=== PATIENT | female | born 2000 | race Caucasian/White ===

== ENCOUNTER 2021-02-27 22:42 | Inpatient (IN) ==
[2021-02-28] MEDS ORDERED: VANCOMYCIN CONSULT ACTIVE PRN ×2 (00:01→02:38)
[2021-02-28] MEDS ORDERED: LACTATED RINGER'S 1,000 ML IV SCH ×3 (00:15→02:45)
[2021-02-28] MEDS ORDERED: VANCOMYCIN HCL 1,500 MG in SODIUM CHLORIDE 0.9% 500 ML IV SCH (00:15)
--- NOTE | 2021-02-28 00:24 | History & Physical Report ---
Date of Service February 28, 2021 Assessment & Plan (1) Uterine contractions at greater than 20 weeks of gestation: Plan: 89-year-old G1, P0 at 39 weeks of gestation presenting with uterine contractions and cervical change, recently diagnosed with COVID-19 infection, appears to have mild disease, Vital signs stable afebrile, oxygen saturation is perfect in room air, Nonreassuring heart rate with recurrent late decelerations after each contractions with minimal variability, Remote from delivery, Plan to admit, monitor, labs, IV fluids, nasal oxygen and proceed with primary delivery, Patient understand the risks and signed an informed consent. (2) Non-reassuring heart rate with late deceleration: (3) COVID-19 affecting in third trimester: History of Present Illness Primary Care Provider: NO PCP Patient is a 20-year-old G1, P0 at 39 weeks of gestation who presented to labor and delivery with contractions started about 4 hours ago they got closer and more painful, every 5 minutes and pain is 6-7 out of 10. She denies leakage of fluid or vaginal bleeding, she reports good movements. She was diagnosed with COVID-19 on February 22 after having loss of taste and smell for few days. She had mild cough which has recovered and her taste of smell and taste came back. She feels well now and has no complaints other than contractions. She denies fever, chills, chest pain, shortness of breath, dizziness, lightheadedness, headache, nausea or vomiting. Her pulse ox is 100% on room air and her vital signs stable and afebrile. Her has been complicated by, 1) COVID 19 on 02/22 2) GBS, allergic cefalosporins, reaction unknown 3) history of anxiety, was using hydroxyzine as needed She was put on the monitors heart rate baseline was at 150s with minimal variability and recurrent late decelerations. After vaginal exam is capsulation heart rate had small increase about 10 bpm with a minimum moderate variability for only 1 to 2 minutes, IV fluid bolus was started and she was continuously monitored. Later recurrent decelerations persisted after every contraction since then. Decision was made to proceed with imminent delivery via primary due to nonreassuring heart rate and removed from delivery and complicated by recent COVID-19 infection. Patient understand the risks of major surgery as bleeding, infection, injury to surrounding organs like bowels bladder and ureter, more risk of blood clots in lungs and legs. She signed an informed consent. Allergies Allergy/AdvReac Type Severity Reaction Status Date / Time strawberry Allergy Intermediate Hives Verified 02/27/21 23:15 Home Medications Medication Instructions Recorded Confirmed Type prenat.vits,rosa elena,[id number] 1 tab PO DAILY 02/04/21 02/27/21 History Patient History Medical History Anxiety COVID-19 affecting in third trimester Surgical History [place] teeth removed Social History Smoking Status: Never smoker Hx Alcohol Use: No Hx Substance Use: No Preferred Language: Maltese Beliefs That Will Affect Care: None marital status: Current Living Situation: Spouse Feels Safe at Home: Yes Safety Concerns: Feels Safe At This Time [employer] History Denies any history of STDs including chlamydia, gonorrhea, herpes Review of Systems as per Subjective / HPI Physical Exam Constitutional: well developed, well nourished, + acute distress (Mild discomfort with contractions) and + obese Gastrointestinal (Abdomen): normal bowel sounds, soft, nontender, no hepatosplenomegaly (Gravid) Genitourinary: normal external appearance OB Exam Abdomen: + vertex Manual OB Exam: + cervical dilation 3 cm, + cervical effacement 80% and + station -2 (Ballotable with scalp summation) OB Exam Monitor Tracing: + external uterine monitor used, + category II and + late decelerations present (Recurrent late decelerations with every contraction and minimal variability) Results & Data ([facility]) Vital Signs (Past 12 Hours) Vital Signs Temp Pulse Resp Pulse Ox 02/28/21 00:12 74 100 02/28/21 00:07 80 99 02/27/21 23:56 74 100 02/27/21 23:51 75 100 02/27/21 23:46 68 99 02/27/21 23:41 69 99 02/27/21 23:36 70 100 02/27/21 23:31 69 100 02/27/21 23:15 36.7 C 16
[2021-02-28 00:28] LABS: Mean Corpuscular Hgb Conc 32.9 g/dL (32-36)
[2021-02-28 00:36] LABS: Hematocrit (blood only) 37.4 % (37-47); Hemoglobin 12.3 g/dL (12.0-16.0); Mean Corpuscular Hemoglobin 26.6 pg (25-34); Mean Corpuscular Volume 80.8 fL (80-100); RDW Standard Deviation 38.1 fL (36.4-46.3); Red Blood Count 4.63 M/uL (4.2-5.4); White Blood Count 7.13 K/uL (4.8-10.8)
[2021-02-28 00:48] LABS: Basophils # (auto) 0.01 K/uL (0-0.2); Basophils % (auto) 0.1 %; Eosinophils # (auto) 0.06 K/uL (0-0.5); Eosinophils % (auto) 0.8 %; Immature Granulocytes # (auto) 0.02 K/uL (0.00-0.02); Immature Granulocytes % (auto) 0.3 %; Lymphocytes # (auto) 1.31 K/uL (1.2-3.4); Lymphocytes % (auto) 18.4 %; Monocytes # (auto) 0.51 K/uL (0.11-0.59); Monocytes % (auto) 7.2 %; Neutrophils # (auto) 5.22 K/uL (1.4-6.5); Neutrophils % (auto) 73.2 %; Platelet Count 155 K/uL (130-400); Platelet Estimate Normal (Normal)
[2021-02-28] MEDS ORDERED: fentaNYL citrate 100 MCG/2 ML VIAL ONE (00:58)
[2021-02-28] MEDS ORDERED: KETOROLAC 30 MG/ML VIAL ONE (00:58)
[2021-02-28] MEDS ORDERED: OXYTOCIN 10 UNITS/ML VIAL ONE (00:58)
[2021-02-28] MEDS ORDERED: ONDANSETRON INJ 2 MG/ML 2 ML VIAL ONE (00:58)
[2021-02-28] MEDS ORDERED: MoRPHine SULFATE PF 1 MG/ML 10 ML AMP/VIAL ONE (00:58)
[2021-02-28] MEDS ORDERED: PHENYLEPHRINE 100MCG/ML 5ML SYR ONE (00:58)
[2021-02-28] MEDS ORDERED: CITRIC ACID/SODIUM CITRATE 15 ML UDC ONE (01:11)
[2021-02-28] MEDS ORDERED: DIPHTHERIA/TETANUS/PERTUSSIS 0.5 ML SYR/VIAL IM ONE (02:26)
[2021-02-28] MEDS ORDERED: ONDANSETRON INJ 2 MG/ML 2 ML VIAL IV PRN ×2 (02:26→02:56)
[2021-02-28] MEDS ORDERED: KETOROLAC 30 MG/ML VIAL IV PRN ×2 (02:26→02:56)
[2021-02-28] MEDS ORDERED: PROMETHAZINE HCL 25 MG in SODIUM CHLORIDE 0.9% 50 ML IV PRN (02:26)
[2021-02-28] MEDS ORDERED: diphenhydrAMINE Capsule 25 MG CAP PO PRN (02:26)
[2021-02-28] MEDS ORDERED: MEPERIDINE HCL 50 MG/ML CARP IV PRN (02:26)
[2021-02-28] MEDS ORDERED: MAGNESIUM HYDROXIDE SUSP 30 ML UDC PO PRN (02:26)
[2021-02-28] MEDS ORDERED: BENZOCAINE 20% AER SPR 82.5 GM CAN EXT PRN (02:26)
[2021-02-28] MEDS ORDERED: SUPERCREAM 0.870% 15 GM JAR EXT PRN (02:26)
[2021-02-28] MEDS ORDERED: diphenhydrAMINE 50 MG/ML VIAL IV PRN ×2 (02:26→02:56)
[2021-02-28] MEDS ORDERED: HYDROCORTISONE ACETATE 25 MG SUPP PR PRN (02:26)
[2021-02-28] MEDS ORDERED: SENNA 8.6 MG TAB PO PRN (02:26)
[2021-02-28] MEDS ORDERED: MEASLES, MUMPS & RUBELLA VIRUS VIAL SQ ONE (02:26)
--- NOTE | 2021-02-28 02:26 | Post Operative Brief Note ---
Immediate Post Op Note v1 Date of Surgery February 28, 2021 Pre & Post Diagnosis Operation Date: 02/28/21 00:45 <No data on this case meets the specified criteria> I identified the patient and participated in the time-out.: Yes Procedure Operation Date: 02/28/21 00:45 <No data on this case meets the specified criteria> Primary Ceserean Section Surgeon Everett Guevara MD Ammonium Nitrate Crystallizer DRISS Montague Estimated Blood Loss 500 Findings Consistent with Post-Op Diagnosis Drains Johnson Catheter (Johnson catheter inserted prior to coming to OR, draining clear yellow urine, monitored by anesthesia) Anesthesia Type Spinal Complications none Disposition Accompanied Patient To Recovery: Yes
[2021-02-28] MEDS ORDERED: ePHEDrine sulfate 50 MG/ML AMP IV PRN (02:56)
[2021-02-28] MEDS ORDERED: NALOXONE HCL 0.4 MG/1 ML VIAL/CARP IV PRN (02:56)
[2021-02-28] MEDS ORDERED: HYDROmorphone INJ 0.5 MG/0.5 ML SYR IV PRN (02:56)
[2021-02-28] MEDS ORDERED: MoRPHine SULFATE 2 MG/ML CARP IV PRN (02:56)
[2021-02-28] MEDS ORDERED: PROMETHAZINE HCL 6.25 MG in SODIUM CHLORIDE 0.9% 50 ML IV PRN (02:56)
[2021-02-28] MEDS ORDERED: NALBUPHINE HCL INJ 10 MG/ML AMP IV PRN (02:56)
[2021-02-28] MEDS ORDERED: MEPERIDINE HCL 25 MG/ML CARP/VIAL IV PRN (02:56)
[2021-02-28] MEDS ORDERED: NALOXONE HCL 0.08 MG in SYRINGE 1.8 ML IV PRN (02:56)
[2021-02-28] MEDS ORDERED: LACTATED RINGER'S 500 ML IV PRN (02:56)
[2021-02-28] MEDS ORDERED: NALOXONE HCL 1 MG in SODIUM CHLORIDE 0.9% 1000ML 1,000 ML IV PRN (02:56)
[2021-02-28] MEDS ORDERED: MoRPHine SULFATE PF 1 MG/ML 10 ML AMP/VIAL INT SPINAL ONE (02:56)
--- NOTE | 2021-02-28 02:56 | Anesthesiology Consultation ---
Date of Service February 28, 2021 Assessment & Plan (1) Encounter for pre-operative examination: Chart Review Chart Review: Acceptable Risk for Surgery and Patient NOT seen in Pre Admission Testing Consults Requested none ASA [id number] Proposed Anesthesia Anesthesia Type: Spinal (If heart tones recovered in OR, GA if FHT still low.) Risk / Benefits Reviewed With: PT / POA / Parent / Guardian, Accepts Plan and Informed Consent Obtained Additional Notes This preoperative evaluation was performed by myself as patient was being urgently prepped by L&D staff for the OR. The computer documentation was completed after the surgery. History Surgery Operation Date: 02/28/21 00:45 Proposed Procedures p Section in LD - Everett Guevara MD Height/Weight Height: 5 ft 4 in Weight: 94.801 kg Allergies Allergy/AdvReac Type Severity Reaction Status Date / Time strawberry Allergy Intermediate Hives Verified 02/27/21 23:15 Cephalosporins Allergy Rash Verified 02/28/21 00:53 Medications Home Medications Medication Instructions Recorded Confirmed Last Taken prenat.vits,rosa elena,[id number] 1 tab PO DAILY 02/04/21 02/27/21 02/27/21 08:00 Active Medications Generic Name Dose Route Start Last Admin Trade Name Freq PRN Reason Stop Dose Admin Lactated Ringer's 1,000 mls @ 125 mls/hr 02/28/21 01:15 02/28/21 00:35 Lr IV 03/30/21 01:14 125 mls/hr .Q8H GENEVIEVE Administration Past Medical History Medical History Anxiety COVID-19 affecting in third trimester Exercise / Class Metabolic Activity II 4-5 Yardwork/Stairs/Walk up hill Past Surgical History Surgical History [place] teeth removed Past Anesthesia History No Hx of Anesthesia Complications and No Family Hx of Anesthesia Complications History of PONV No Hx of PONV and No Hx of Motion Sickness Social History Smoking Status: Never smoker Hx Alcohol Use: No Hx Substance Use: No Physical Exam Vital Signs Last Vital Signs Temp 36.7 C 02/27/21 23:15 Pulse 74 02/28/21 02:45 Resp 16 02/27/21 23:15 BP 168/70 H 02/28/21 02:43 Pulse Ox 100 02/28/21 02:45 ENMT Mouth: no dentition abnormality Thyromental Distance: > or= 3.5 Finger Breadths Mallampati Class: II Neck normal visual inspection Respiratory normal respiratory effort Auscultation: lungs clear to auscultation bilaterally Cardiovascular Rate/Rhythm: regular rate and regular rhythm Psychiatric Orientation: alert Testing Laboratory Results 02/28/21 00:08 Blood Type A Positive 02/28/21 00:08 Antibody Screen NEGATIVE 02/28/21 00:08
--- NOTE | 2021-02-28 02:57 | Anesthesiology Progress Note ---
Date of Service February 28, 2021 Anesthesia Post Procedure Vital Signs Vital Signs: Temp Pulse Resp BP Pulse Ox 02/28/21 02:55 79 100 02/28/21 02:52 74 90 02/28/21 02:50 77 99 02/28/21 02:45 74 100 02/28/21 02:43 93 H 168/70 H 02/28/21 02:42 75 89 L 02/28/21 02:40 78 98 02/28/21 02:35 84 100 02/28/21 02:33 85 117/57 L 02/28/21 02:30 86 100 02/28/21 01:07 76 100 02/28/21 01:02 76 100 02/28/21 00:57 72 100 02/28/21 00:52 71 100 02/28/21 00:47 80 100 02/28/21 00:42 79 100 02/28/21 00:37 72 100 02/28/21 00:17 100 02/28/21 00:12 74 100 02/28/21 00:07 80 99 02/27/21 23:56 74 100 02/27/21 23:51 75 100 02/27/21 23:46 68 99 02/27/21 23:41 69 99 02/27/21 23:36 70 100 02/27/21 23:31 69 100 02/27/21 23:15 36.7 C 16 Transfer of Care Handoff Completed per policy Notes Mental Status: alert / awake / arousable Nausea / Vomiting: adequately controlled Pain: adequately controlled Airway Patency, RR, SpO2: stable & adequate BP & HR: stable & adequate Hydration State: stable & adequate Neuraxial Anesthesia: was administered and sensory block is resolving Anesthetic Complications: no major complications apparent and Pt Satisfied with anesthetic care
[2021-02-28] MEDS ORDERED: SODIUM CHLORIDE 0.9% 1000ML 1,000 ML IV SCH (03:00)
[2021-02-28] MEDS ORDERED: NO NARCOTICS OR SEDATIVES SCH (03:00)
[2021-02-28] MEDS ORDERED: DC INTRASPINAL MORPHINE SCH (03:00)
[2021-02-28] MEDS: OXYTOCIN 20 UNITS in LACTATED RINGER'S 1,000 ML IV SCH ×2 (04:20→12:26)
--- NOTE | 2021-02-28 04:42 | Operative Report (OR) ---
PREOPERATIVE DIAGNOSES: The patient is a 20-year-old G1, P0, at 39 weeks of gestation, presenting to labor and delivery with contractions, early labor with recurrent late heart rate decelerations, nonreassuring status, remote from delivery and COVID-19 disease. POSTOPERATIVE DIAGNOSES: The patient is a 20-year-old G1, P0, at 39 weeks of gestation, presenting to labor and delivery with contractions,early labor with recurrent late heart rate decelerations, nonreassuring status, remote from delivery and COVID-19 disease. Nuchal cord, meconium-stained amniotic fluid. PROCEDURE: Primary low transverse with Pfannenstiel skin incision. SURGEON: Everett Guevara MD ACTIVITIES COORDINATOR: DRISS Jones ESTIMATED BLOOD LOSS: 500 mL. DRAINS: Johnson catheter drained 675 mL of clear urine. ANESTHESIA: Spinal. ANESTHESIOLOGIST: Dr. Lucia. COMPLICATIONS: None. DESCRIPTION OF FINDINGS: Baby was a viable male infant delivered at 1:35 a.m. in cephalic presentation, Apgars were 8/9, weight is pending. There was a dark meconium-stained amniotic fluid and a nuchal cord around the neck x1. Maternal findings: Normal uterus, fallopian tubes, and ovaries. DESCRIPTION OF PROCEDURE: The patient was taken to the operating room where FHR checked to be in 130's and then spinal anesthesia was given without difficulty. She was placed in dorsal supine position with a leftward tilt. She was prepared and draped in the usual sterile fashion. A Pfannenstiel skin incision was made, carried through to the underlying layer of fascia with the Bovie. Fascia was incised in the midline and incision was extended laterally with the help of Armstrong scissors. Upper aspect of the fascial incision was grasped with 2 Shae clamps, elevated and underlying rectus muscles were dissected off sharply with Armstrong scissors. Lower aspect of the fascial incision was then grasped with 2 Shae clamps, elevated, and underlying rectus muscles were dissected off sharply with Armstrong scissors and bluntly with fingers. Rectus muscles were in the midline. Peritoneum was entered bluntly with fingers. Peritoneal incision was extended superiorly and inferiorly with good visualization of the bladder. Bladder blade was inserted. Vesicouterine peritoneum was identified, grasped with pickups, and entered sharply with Metzenbaum scissors. Bladder flap was created digitally and bladder blade was reinserted. Lower uterine segment was incised in a transverse fashion. Incision was extended laterally with the help of fingers. Membranes were ruptured. Dark meconium fluid stain was obtained and there was a loop of cord at the incision as well as the baby's hand. The baby's hand and the loop of cord were pushed back gently and then head was delivered without difficulty. Shoulders were delivered with minimal traction. Nuchal cord was removed and then the baby's mouth and nose were suctioned. Cord was clamped x2 and cut and baby was handed off to the waiting pediatric team. Cord blood was obtained. Placenta was delivered manually as intact and complete. Uterus was exteriorized and cleared of all clots and debris. Fundus was firm. The uterine incision was repaired with 0 Vicryl in a running locked fashion. Second imbricating layer was placed with the same suture in a running locked fashion. Excellent hemostasis was achieved. Cul-de-sac was irrigated with warm normal saline and suctioned. Normal fallopian tubes, ovaries, cul-de-sac were seen. Uterus was returned to the abdomen. Pelvis was irrigated with warm normal saline and suctioned. Uterine incision was checked to be hemostatic. Parietal peritoneum was approximated with 3-0 Vicryl in a running fashion and it was continued on the muscular layer in a running fashion. Under the fascia, the rectus muscles were hemostatic. Rectus fascia was repaired with 0 Vicryl in a running fashion. Subcuticular fat tissue was brought together with 3-0 Vicryl in a running fashion. The skin was closed with 4-0 Monocryl in a subcuticular fashion. The patient tolerated the procedure well. Sponge, lap, needle count was correct x3. No complications happened. I was present during whole procedure. The patient received vancomycin during surgery. Job ID: [id number] [facility]
[2021-02-28] MEDS ORDERED: CITRIC ACID/SODIUM CITRATE 15 ML UDC PO SCH (06:00)
[2021-02-28] MEDS: FERROUS SULFATE 325 MG TAB PO SCH (08:00)
[2021-02-28] MEDS: SIMETHICONE 80 MG CHEW PO SCH ×4 (08:00→19:55)
[2021-02-28] MEDS: PRENATAL VITAMIN 1 TAB PO SCH (08:00)
[2021-02-28] MEDS: DOCUSATE SODIUM 100 MG CAP PO SCH ×2 (08:00→19:55)
[2021-02-28] MEDS ORDERED: VANCOMYCIN HCL 1,500 MG in SODIUM CHLORIDE 0.9% 500 ML IV ONE (14:00)
[2021-02-28] MEDS: ENOXAPARIN INJ 40 MG/0.4 ML SYR SQ SCH (16:57)
[2021-03-01] MEDS: IBUPROFEN 600 MG TAB PO PRN ×2 (05:15→19:48)
[2021-03-01] MEDS ORDERED: VANCOMYCIN HCL 1,000 MG/270 ML BAG IV SCH (06:00)
[2021-03-01 06:38] LABS: Mean Corpuscular Hgb Conc 31.7 g/dL (32-36)
[2021-03-01 06:57] LABS: Basophils # (auto) 0.01 K/uL (0-0.2); Basophils % (auto) 0.2 %; Eosinophils # (auto) 0.05 K/uL (0-0.5); Giant Platelets 1+; Hematocrit (blood only) 34.4 % (37-47); Hemoglobin 10.9 g/dL (12.0-16.0); Immature Granulocytes # (auto) 0.01 K/uL (0.00-0.02); Immature Granulocytes % (auto) 0.2 %; Lymphocytes # (auto) 0.84 K/uL (1.2-3.4); Lymphocytes % (auto) 16.8 %; Mean Corpuscular Hemoglobin 26.3 pg (25-34); Mean Corpuscular Volume 83.1 fL (80-100); Mean Platelet Volume 13.8 fL (7.4-10.4); Monocytes # (auto) 0.35 K/uL (0.11-0.59); Neutrophils # (auto) 3.73 K/uL (1.4-6.5); Neutrophils % (auto) 74.8 %; Platelet Count 135 K/uL (130-400); Platelet Estimate Decreased (Normal); RDW Coefficient of Variation 13.1 % (11.5-14.5); RDW Standard Deviation 39.6 fL (36.4-46.3); Red Blood Count 4.14 M/uL (4.2-5.4); White Blood Count 4.99 K/uL (4.8-10.8)
[2021-03-01] MEDS: SIMETHICONE 80 MG CHEW PO SCH ×4 (08:05→20:11)
[2021-03-01] MEDS: PRENATAL VITAMIN 1 TAB PO SCH (08:06)
[2021-03-01] MEDS: FERROUS SULFATE 325 MG TAB PO SCH (08:06)
[2021-03-01] MEDS: DOCUSATE SODIUM 100 MG CAP PO SCH ×2 (08:06→19:49)
[2021-03-01 09:18] LABS: INR 0.9 (0.9-1.1); Partial Thromboplastin Ratio 1.1; Partial Thromboplastin Time 29.8 Seconds (21.0-31.0)
[2021-03-01 09:30] LABS: Albumin Level 2.4 gm/dl (3.4-5.0); BUN Creatinine Ratio 8.3 (10-20); Calcium 8.8 mg/dl (8.5-10.1); Creatinine Clr Calc Pharmacy 127.4 ml/min; Est GFR (Non-African American) 108.7 ml/min; Potassium 3.7 mmol/L (3.5-5.1)
[2021-03-01 09:32] LABS: Albumin Globulin Ratio 0.6 (0.9-2); Bilirubin,Total 0.4 mg/dl (0.2-1); Globulin 3.9 gm/dl (2.5-4.0); Total Protein 6.3 gm/dl (6.4-8.2)
[2021-03-01 09:50] LABS: Fibrinogen 553 mg/dl (184-400)
--- NOTE | 2021-03-01 10:21 | Obstetrical Progress Note ---
Date of Service March 01, 2021 Assessment & Plan (1) delivery delivered: c/sec day #1 s/p COVID +ve pt doing well No complaints continue day #1 care Subjective Ambulation: ambulating normally Voiding: no voiding problems Passing Gas:: Yes Diet Tolerance:: clear liquids Lochia:: Small Feeding Type:: breast feeding Review of Systems All systems reviewed & are unremarkable except as noted in HPI & below Physical Exam Constitutional WD/WN, vitals as above well developed and well nourished Eyes PERRL, conjunctivae normal, anicteric sclerae ENMT external ear and nose normal, oropharynx normal Neck trachea midline, no thyromegaly Respiratory normal respiratory effort, lungs clear to auscultation Cardiovascular RRR, no murmur, no edema Chest (Breasts) normal inspection/palpation of breasts Gastrointestinal (Abdomen) normal bowel sounds, soft, nontender, no hepatosplenomegaly Musculoskeletal no cyanosis or clubbing, extremities motor strength 5/5 Skin no rashes, warm and dry + incision (Clean,dry and intact) Neurologic patellar DTR's 2+ bilat, sensation intact Psychiatric A+Ox3, euthymic affect Genitourinary normal external appearance Lymphatic no cervical or axillary lymphadenopathy Results & Data ([facility]) Vital Signs (Past 12 Hours) Vital Signs Temp Pulse Resp BP Pulse Ox 03/01/21 07:55 36.9 C 63 18 124/85 98 03/01/21 03:01 36.9 C 66 16 116/77 96 03/01/21 00:05 36.9 C 65 16 123/73 97
[2021-03-01] MEDS: ENOXAPARIN INJ 40 MG/0.4 ML SYR SQ SCH (15:24)
[2021-03-01] MEDS: oxyCODONE/ACETAMINOPHEN 5mg/325mg TAB PO PRN (19:49)
[2021-03-01] MEDS ORDERED: bisacodyL 5 MG TABEC PO SCH (20:00)
[2021-03-02] MEDS ORDERED: bisacodyL 10 MG SUPP PR PRN (02:27)
[2021-03-02 07:29] LABS: Hematocrit (blood only) 34.5 % (37-47)
[2021-03-02] MEDS: SIMETHICONE 80 MG CHEW PO SCH (07:54)
[2021-03-02] MEDS: IBUPROFEN 600 MG TAB PO PRN (07:54)
[2021-03-02] MEDS: DOCUSATE SODIUM 100 MG CAP PO SCH (07:54)
[2021-03-02] MEDS: FERROUS SULFATE 325 MG TAB PO SCH (07:54)
[2021-03-02] MEDS: oxyCODONE/ACETAMINOPHEN 5mg/325mg TAB PO PRN (07:54)
[2021-03-02] MEDS: PRENATAL VITAMIN 1 TAB PO SCH (09:31)
--- NOTE | 2021-03-02 09:58 | Obstetrical Progress Note ---
Date of Service March 02, 2021 Assessment & Plan (1) delivery delivered: discharge Day #:: 2 Subjective Ambulation: ambulating normally Voiding: no voiding problems Passing Gas:: Yes Diet Tolerance:: regular diet Feeding Type:: bottle feeding Current Pain Level(1-10): 0 doing well plans for d/c today Review of Systems All systems reviewed & are unremarkable except as noted in HPI & below Physical Exam Constitutional WD/WN, vitals as above well developed and comfortable incision c/d/i abdomen is soft fundus firm no edema neg Patrica's Results & Data ([facility]) Vital Signs (Past 12 Hours) Vital Signs Temp Pulse Resp BP Pulse Ox 03/02/21 08:47 36.9 C 74 18 127/83 99 03/02/21 08:15 36.9 C 74 18 127/83 99 03/02/21 03:05 128/82 03/01/21 23:20 36.9 C 68 18 148/85 H 98
--- NOTE | 2021-03-04 05:53 | Discharge Summary (DS) ---
DATE OF ADMISSION: 02/27/2021 DATE OF DISCHARGE: 03/02/2021. DETAILS OF ADMISSION: The patient is a 20-year-old G1, P0 at 39 weeks of gestation, who presented to labor and delivery on 02/27/2021 with uterine contractions and mild COVID disease. She was admitted in isolation room. Her cervix was 3 cm dilated, 80% effaced, and head was at -2 station indicating early labor. heart rate was having late decelerations after each contraction with prolonged decelerations. The patient was started on IV fluids, nasal oxygen and then prepared for emergency . She was taken to the OR on 02/28/2021 and delivered a viable at 01:35 a.m. Her surgery was uncomplicated. See dictated op note for details. On postop period, the patient was doing well, vital signs stable, afebrile. Her COVID symptoms were mild. Her pulse ox was 100% on room air. She was started on Lovenox after 12 hours from her surgery. On postop day #1 she was doing well, VSS Afebrile. Her physical exam was unremarkable. Lungs are clear to auscultation bilaterally. Abdomen was soft, nontender, nondistended. Incision was clean, dry and intact. Her postop H and H was stable at 10/34. On postop day #2, the patient was doing well, vital signs stable, afebrile, ambulating, tolerating regular diet, passing gas and the patient desired to be discharged home on postoperative day #2, 03/02/2021. Discharge instructions were given. Prescriptions were written for pain. She is to be seen in the office in a week. All questions were answered. Job ID: [id number] [facility]
== END 2021-03-02 10:15 | disposition home or self-care (01) | DRG 786 ==
LOC: OPB 22:42 → 4S1 22:45 → 4W 22:49 → 3N 02-28 18:50

== ENCOUNTER 2023-09-26 05:29 | Inpatient (IN) ==
--- NOTE | 2023-09-08 15:36 | Anesthesiology Consultation ---
Date of Service September 08, 2023 Assessment & Plan (1) Encounter for pre-operative examination: Chart Review Chart Review: entry level initiated -Infectious Disease screening: Per PAT nursing assessment on 09/08/23. No known infectious disease contacts in past 10 days or current infectious disease symptoms. No recent travel outside the country. Primary (term distress) 02/28/21= Done under SAB at L3-4 with 1 attempt. Prolonged delivery prior to transport from L&D. History Surgery Operation Date: 09/26/23 07:30 Proposed Procedures p Repeat Section in LD - Marko Watts MD s Bilateral Tubal ligation - Marko Watts MD Height/Weight Height: 5 ft 4 in Weight: 104.326 kg Allergies Allergy/AdvReac Type Severity Reaction Status Date / Time Cephalosporins Allergy Intermediate Rash Verified 09/08/23 14:40 strawberry Allergy Intermediate Hives Verified 09/08/23 14:40 Medications Home Medications Medication Instructions Recorded Confirmed Last Taken prenat.vits,rosa elena,[id number] 1 tab PO DAILY 02/04/21 09/08/23 02/27/21 08:00 ibuprofen 600 mg tablet 600 mg PO Q4H PRN fever or pain 03/02/21 09/08/23 Unknown #30 tabs oxycodone-acetaminophen 5 mg-325 1 - 2 tab PO Q4H PRN pain #14 tabs 03/02/21 09/08/23 Unknown mg tablet (Percocet) sertraline 25 mg tablet (Zoloft) 25 mg PO QAM 09/08/23 09/08/23 Unknown Past Medical History Medical History Anxiety COVID-19 affecting in third trimester 2020 > resolved Past Surgical History Surgical History delivery delivered x1 [place] teeth removed Social History Smoking Status: Never smoker Do You Dip or Chew Tobacco: No Hx Alcohol Use: No Hx Substance Use: No substance use type: does not use Testing Laboratory Results 08/17/23= WBC: 7.30 H/H: 11.5/36.7 PLATELETS: 218 CREATININE: 0.6
[~2023-09-26 05:29] MED LIST: ALLERGY Noted to ORDERED Medication SCH; LACTATED RINGER'S 1,000 ML IV SCH
[2023-09-26] MEDS: LACTATED RINGER'S 1,000 ML IV SCH (06:05)
[2023-09-26] MEDS ORDERED: SODIUM CHLORIDE 0.9% 250 ML IV PRN (06:09)
[2023-09-26 06:12] LABS: Hemoglobin 12.1 g/dl (12.0-16.0); Mean Corpuscular Hemoglobin 25.2 pg (25.0-34.0); Mean Corpuscular Hgb Conc 31.8 g/dL (32.0-36.0); Mean Platelet Volume 13.4 fL (9.4-12.4); Platelet Count 199 K/uL (130-400); RDW Coefficient of Variation 15.9 % (11.5-14.5); RDW Standard Deviation 45.1 fL (36.4-46.3); Red Blood Count 4.81 M/uL (4.20-5.40); White Blood Count 5.81 K/ul (4.8-10.8)
[2023-09-26] MEDS ORDERED: MoRPHine SULFATE PF 1 MG/ML 10 ML AMP/VIAL ONE (07:03)
[2023-09-26] MEDS ORDERED: VANCOMYCIN CONSULT ACTIVE PRN (07:13)
[2023-09-26] MEDS: VANCOMYCIN HCL 1,500 MG in SODIUM CHLORIDE 0.9% 500 ML IV STA (07:25)
[2023-09-26] MEDS ORDERED: LACTATED RINGER'S 500 ML IV PRN (07:47)
[2023-09-26] MEDS ORDERED: MoRPHine SULFATE PF 1 MG/ML 10 ML AMP/VIAL INT SPINAL ONE (07:47)
[2023-09-26] MEDS ORDERED: ePHEDrine sulfate 50 MG/ML AMP IV PRN (07:47)
[2023-09-26] MEDS ORDERED: NALOXONE HCL 0.4 MG/1 ML VIAL/CARP IV PRN (07:47)
[2023-09-26] MEDS ORDERED: diphenhydrAMINE 50 MG/ML VIAL IV PRN (07:47)
[2023-09-26] MEDS ORDERED: NALOXONE HCL 0.08 MG in SYRINGE 1.8 ML IV PRN (07:47)
[2023-09-26] MEDS ORDERED: NALBUPHINE HCL 5 MG in SYRINGE 0 ML IV PRN (07:47)
[2023-09-26] MEDS ORDERED: NALOXONE HCL 1 MG in SODIUM CHLORIDE 0.9% 1,000 ML IV PRN (07:47)
[2023-09-26] MEDS ORDERED: MoRPHine SULFATE 2 MG/ML CARP IV PRN (07:47)
[2023-09-26] MEDS ORDERED: ONDANSETRON INJ 2 MG/ML 2 ML VIAL IV PRN (07:47)
[2023-09-26] MEDS ORDERED: PROMETHAZINE HCL 6.25 MG in SODIUM CHLORIDE 0.9% 50 ML IV PRN (07:47)
[2023-09-26] MEDS: CITRIC ACID/SODIUM CITRATE 15 ML UDC PO SCH (07:55)
--- NOTE | 2023-09-26 07:55 | History & Physical Bridge Note ---
Date of Service September 26, 2023 History & Physical Bridge Note I have examined the patient, reviewed the History & Physical and in the interval since the performance of the History & Physical I have noted the following changes of clinical significance: no changes noted
[2023-09-26] MEDS ORDERED: DC INTRASPINAL MORPHINE SCH (08:00)
[2023-09-26] MEDS ORDERED: SODIUM CHLORIDE 0.9% 1,000 ML IV SCH (08:00)
[2023-09-26] MEDS ORDERED: NO NARCOTICS OR SEDATIVES SCH (08:00)
[2023-09-26] MEDS ORDERED: ONDANSETRON INJ 2 MG/ML 2 ML VIAL ONE (08:24)
[2023-09-26] MEDS ORDERED: ePHEDrine sulfate 50 MG/5 ML SYR ONE (08:24)
[2023-09-26] MEDS ORDERED: OXYTOCIN 10 UNITS/ML VIAL ONE (08:24)
[2023-09-26] MEDS ORDERED: PHENYLEPHRINE 100MCG/ML 10ML SYR IV ONE (08:24)
[2023-09-26] MEDS ORDERED: METOCLOPRAMIDE HCL INJ 5 MG/ML 2 ML VIAL ONE (08:24)
[2023-09-26] MEDS: OXYTOCIN 10 UNITS/ML 10ML VIAL IM ONE (08:33)
[2023-09-26] MEDS: ceFAZolin 2000MG 2,000 MG/15 ML SYR IV SCH (08:57)
[2023-09-26] MEDS ORDERED: ESMOLOL HCL INJ 10 MG/ML 10ML VIAL IV ONE (08:58)
--- OUTSIDE RECORDS SUMMARY | 2023-09-26 08:59 | External Medical Summary | Summary of Care ---
Author Name Unknown Organization [facility] Address [address] [place] [address] Phone [phone] Care Team Providers Care Linen Supply Load Builder Name Role Phone Genaro Long MD Primary Care Provider [phone] Reason for Visit * Reason Onset Date Comments Test Results 08/31/2023 Encounter Details Date Type Department Care Team ([facility] st Contact Info) Description 08/31/2023 Telephone Gynecology/Obstetics [place] [address] [place] [address] Trisha Savage PA-C [address] [place] [address] Test Results Allergies Active Allergy Reactions Criticality Noted Date Comments Cephalosporins 01/24/2001 Food (See Comments) Hives 05/03/2010 documented as of this encounter (statuses as of 08/31/2023) Medications Medication Sig Dispensed Refills Start Date End Date Status Adult Gummy/DHA/FA 0.4-25 MG Oral Tablet Chewable Take by mouth. 0 Active Sertraline HCl 25 MG Oral Tablet (Zoloft)Indications:A nxiety and depression Take 1 Tablet by mouth daily. 90 Tablet 2 04/14/2023 Active Iron-Vitamin C 65-125 MG Oral Tablet (Vitron C) Take 1 Tablet by mouth in the morning. 90 Tablet 3 07/04/2023 Active metroNIDAZOLE 500 MG Oral Tablet (Flagyl) Take 1 Tablet by mouth in the morning and 1 Tablet before bedtime. X 7 days until gone.. 14 Tablet 0 08/31/2023 Active documented as of this encounter (statuses as of 08/31/2023) Active Problems Problem Noted Date Diagnosed Date Antepartum anemia complicating 024 Overview: Did not tolerate oral iron well. Will repeat CBC NEXT appointment to follow up. Anxiety and depression 03/21/2023 Overview: Desires assistance with medication. Prescription given for Zoloft. Declines counseling. Denies suicidal or homicidal thoughts. Patient agrees that she would seek urgent medical attention if she had suicidal or homicidal thoughts. Supervision of normal 02/24/2023 Overview: Estimated Date of Delivery: 09/28/23 Continue vitamin. A positive. Rubella not immune. Varicella immune. Declines genetic testing. S/p anatomy ultrasound - complete and within normal limits. Variable. Passed 1 hour glucose test. CBC shows anemia - on Vitron C. Tdap vaccine completed. GBS culture at 36 weeks. Declines influenza vaccine and declines COVID-19 vaccine. contraception: tubal ligation. Desires to breastfeed. Has a breast pump. History of section complicating pregnan cy 02/21/2023 Overview: History of x 1. Desires repeat and tubal ligation. Rubella non-immune status, antepartum 02/05/2021 Postural orthostatic tachycardia syndrome 2014 Overview: More problematic in summer season, In past sodium chloride has helped prevent the symptoms along with ample fluids. Not using since KOP, Sx's when experienced are flushing/hot flash and dizziness. Syncope episode on rare occasion only. Past neuro work-up with diagnosis age 13. Last seen and released to PCP f/u 2015 Last Assessment & Plan: CONSIDERATIONS: POTS is a form of orthostatic intolerance characterized by an excessive increase in heart rate that occurs on standing without arterial hypotension. Abnormalities in autonomic regulation are felt to be either genetic or acquired. Patients should avoid precipitating factors, and physical activity should be encouraged. POTS can have a variable course in as far as symptoms. ?It is not usually associated with increased maternal or complications RECOMMENDATIONS: Dr. Elroy Pruitt consulted. Referral to neurology for management and care during is recommended. Referral placed and patient made aware. Estimated Date of Delivery Comme nts Yes 09/29/2023 Based on Ultraso und documented as of this encounter (statuses as of 08/31/2023) Resolved Problems Problem Noted Date Diagnosed Date Resolved Date Carrier of group B Streptococcus 02/17/2021 08/19/2023 , normal first 01/12/202107/14 MICHELLE (generalized anxiety disorder) 08/06/2020 08/01/2022 Overview: Hydroxyzine Hcl prn ADVANCE DIRECTIVE INFORMATION 06/02/2005 07/09/2019 Overview: Not applicable (under age of 18) documented as of this encounter (statuses as of 08/31/2023) Immunizations Name Administration Dates Next Due HPV Vaccine, 9-Valent 07/14/2017,03/10/2017,12/11 Meningococcal Conjugate Vacc ine (Menactra/Menveo) 12/25/2015,03/01/2011 PPD 07/15/2020,07/31/2018,11/27/2017 Seasonal Influenza, Split, I IV3, With Preserve, Inj 09/06/2010() TDAP (age 10 and older)(Boostrix) 07/05/2023,07/2020,07/15/2020 TDAP (age 11 and older)(Adacel) 02/09/2010 Varicella Vaccine (Chicken Pox) 02/09/2010 documented as of this encounter Social History Tobacco Use Types Packs/Day Years Used Date Smoking Tobacco: Never Smokeless Tobacco: Never Alcohol Use Standard Drinks/Week Comments Not Currently 0 (1 standard drink = 0.6 oz pur e alcohol) occasional AUDIT-C Answer Date Recorded Frequency of Alcohol Consumption Never 07/14/2020 Average Number of Drinks Not on file 021 Frequency of Binge Drinking Not on file 07/2020 PHQ-2 Answer Date Recorded PHQ Adult Total Score 0 08/17/2023 Hunger Vital Sign Answer Date Recorded Within the past 12 months, y ou worried that your food would run out before you got the money to buy more. Never true 05/02/20 23 Within the past 12 months, t he food you bought just didn't last and you didn't have money to get more. Never true 05/02/2023 [place] Depression Scale Answer Date Recorded [place] Depression Scale Total 7 08/17/2023 The thought of harming myself has occurred to me . Never 08/17/2023 Estimated Date of Delivery Comme nts Yes 09/29/2023 Based on Ultraso und Sex and Gender Information Value Date Recorded Sex Assigned at Female 08/01/2022 2:51 PM EST Gender Identity Female 08/01/2022 2:51 PM EST Sexual Orientation Straight 08/01/2022 2: 51 PM EST Job Start Date Occupation Industry Not on file Not on file Not on file documented as of this encounter Functional Status Functional Status Response Date of Assess ment Are you deaf or do you have serious difficulty h earing? No 08/15/2014 Are you blind or do you have serious difficulty seeing, even when wearing glasses? No 08/15/2014 Do you have serious difficul ty walking or climbing stairs? (5 years old or older) No 08/15/2014 Do you have difficulty dress ing or bathing? (5 years old or older) No 08/15/2014 Cognitive Status Response Date of Assessm ent Because of a physical, menta l, or emotional condition, do you have serious difficulty concentrating, remembering, or making decisions? (5 years old or older) No 08/15/2014 documented as of this encounter Miscellaneous Notes * Telephone Encounter - Trisha Savage PA-C - 08/31/2023 12:36 PM EDT Spoke with patient. Patient notified that her culture is positive for bacterial vaginosis. Suspect this is the reason for the vaginal spotting. A positive blood type. Prescription sent for Metronidazole. Advised no alcohol use in and no alcohol use on Metronidazole. documented in this encounter Plan of Treatment Upcoming Encounters Date Type Department Care Team (Late st Contact Info) Description 09/08/2023 9:00 AM EDT Office Visit Gynecology/Obstetrics [facility] [address] [place] [address] Nina Nino PA-C [address] [place] [address] 09/14/2023 2:15 PM EDT Office Visit Gynecology/Obstetrics [facility] [address] [place] [address] Kasey Styles CRNP [address] [place] [address] 09/20/2023 1:30 PM EDT Office Visit Gynecology/Obstetrics [facility] [address] [place] [address] Marko Watts MD [address] [place] [address] 10/03/2023 1:45 PM EDT Office Visit Gynecology/Obstetrics [facility] [address] [place] [address] Kasey Styles CRNP [address] [place] [address] Health Maintenance Due Date Last Done Comments COVID-19 Vaccine ( season) 2023 Influenza Vaccine (FLU shot) (#1) 2023 Gonorrhea / Chlamydia Screen 02/22/202405/2023, 07/14/2020, 01/08/2018, Additional history exists Pap Smear 04/23/2024 04/23/2021 Depression Screening 08/16/2024 08/17/2023 DTaP,Tdap,and Td Vaccines (10 - Td or Tdap) 07/05/2033 07/05/2023, 12/11/2020, 07/15/2020, Additional history exists Hepatitis B Completed 10/13/2000, 02/11, 01/12/2000 MENINGOCOCCAL (MENACTRA/MENVEO) Completed 12/25/2015, 03/01/2011 GARDASIL-HPV IMMUNIZATION SERIES Completed 07/14/2017, 03/10/2017, 01/06/2017 Pneumococcal Vaccine: Pediatrics (0 to 5 Years) and At-Risk Patients (6 to 64 Years) Aged Out No longer eligible based on patient's age to complete this topic documented as of this encounter Medical Devices Not on filedocumented as of this encounter Care Teams Linen Supply Load Builder Relationship Specialty Start Date End Date Genaro Long MD [address] [place] [id number] PCP - General Family Medicine 08/15/14 documented as of this encounter
--- OUTSIDE RECORDS SUMMARY | 2023-09-26 08:59 | External Medical Summary ---
Author Name Unknown Address Unknown Organization K01:[facility] [place] [address] [facility] [address] Laboratory Report Ordering Provider Test Date Status CURTIS BARNETT 08/30/2023 15:31:24 Final Observation Date Value Abnormality Reference (Units ) Status Streptococcus agalactiae DNA [Presence] in Specimen by DAISY with probe detection 08/30/2023 15:31:24 Positive Abnormal Negative Final Group B Streptococcus detect ed by culture-enhanced PCR (amplified probe).
The collection of vaginal/rectal swab specimen combinations (FDA approved specimen type) is optimal for the detection of Group B Streptococcus. Single source collection (vaginal only or rectal only) or alternate specimen sources may lead to false negative results. Performing Location [facility] [place] [address] [place] [address]
--- OUTSIDE RECORDS SUMMARY | 2023-09-26 08:59 | External Medical Summary | Summary of Care ---
Author Name Unknown Organization [facility] Address [address] [place] [address] Phone [phone] Care Team Providers Care Reproduction Production Manager Name Role Phone Genaro Long MD Primary Care Provider [phone] Reason for Visit * Reason Comments Return Visit Encounter Details Date Type Department Care Team (Late st Contact Info) Description 08/30/2023 3:30 PM EDT Office Visit Gynecology/Obstetics [place] [address] [place] [address] Trisha Savage PA-C [address] [place] [address] Encounter for supervision of other normal in third trimester*; History of section complicating ; Anxiety and depression; Antepartum anemia complicating ; Vaginal spotting Allergies Active Allergy Reactions Criticality Noted Date [...] the morning. 90 Tablet 3 07/04/2023 Active documented as of this encounter (statuses [...] money to get more. Never true 05/02/2023 [place] Depression Scale Answer Date Recorded [place] Depression Scale Total 7 08/17/2023 The thought [...] on file documented as of this encounter Last Filed Vital Signs Vital Sign Reading Time Taken Comments Blood Pressure 130/72 08/30/2023 3:20 PM EDT Pulse - - Temperature - - Respiratory Rate - - Oxygen Saturation - - Inhaled Oxygen Concentration - - Weight 105.6 kg (232 lb 12.8 oz) 08/30/2023 3:20 PM EDT Height - - Body Mass Index 39.96 08/25/2023 2:47 PM EDT documented in this encounter Functional Status Functional Status Response [...] No 08/15/2014 documented as of this encounter Progress Notes * Trisha Savage PA-C - 08/30/2023 3:24 PM EDT Afia Saunders presents for visit at 35w5d. BP 130/72 | Wt 105.6 kg (232 lb 12.8 oz) | LMP 01/09/2023 (Approximate) | BMI 39.96 kg/m | BSA 2.18 m Doing well. Denies vaginal bleeding, leaking of fluid, vaginal pressure, contractions, abdominal pain, or abnormal vaginal discharge. Denies headaches, blurry vision, or right upper quadrant pain. Patient states she feels good movement. Patient reports that mood is stable. Patient reports she had some brownish spotting when wiping after using the restroom yesterday and it was mixed with mucous like discharge. Patient is wondering if she lost her mucous plug. Patient was last sexually active over the weekend. Patient is A positive blood type. Physical Exam General: alert and oriented, no acute distress Pulmonary: normal respiratory effort, no accessory muscle use. Abdomen: gravid, soft, non-tender heart rate: 140's bpm Fundal height: 36 cm Pelvic Exam: external genitalia and vagina anatomy within normal limits, GBS culture obtained today. White vaginal discharge, vaginitis culture obtained today. No blood in the vagina. No pooling in the vagina on valsalva. Cervix visually closed. Pulp Screen Operator Documentation Patient offered construction consultant and declined. [place] Problems (from 02/07/23 to present) Problem Noted Resolved Antepartum anemia complicating 07/19/2023 by Trisha Savage PA-C No Taking oral iron. Anxiety and depression 03/21/2023 by Trisha Savage PA-C No Doing well on Zoloft. Declines counseling. Denies suicidal or homicidal thoughts. Patient agrees that she would seek urgent medical attention if she had suicidal or homicidal thoughts. Supervision of normal 02/24/2023 by Trisha Savage PA-C No Estimated Date of Delivery: 09/28/23 Continue vitamin. A positive. Rubella not immune. Varicella immune. Declines genetic testing. S/p anatomy ultrasound - complete and within normal limits. Variable. Passed 1 hour glucose test. CBC shows anemia - on Vitron C. Tdap vaccine completed. GBS culture at 36 weeks - obtained on 08/30/2023. Declines influenza vaccine and declines COVID-19 vaccine. contraception: tubal ligation. Desires to breastfeed. Has a breast pump. History of section complicating 02/21/2023 by Trisha Savage PA-C No History of x 1. Desires repeat and tubal ligation. Plan: -Advised pelvic rest x 2 weeks (no sexual intercourse). Patient agrees. -Vaginitis culture and urine culture obtained today. -Cephalic. Placenta and RENÉE normal. -Counseled patient on precautions. Patient has carbon plant grinder phone number if needed. -A positive blood type. -GBS culture obtained today. -Patient reports that mental health is stable. -Taking oral iron due to anemia. -Following with Aris Cuauhtemoccarlos Cokers after this due to delivering at [facility]. -Repeat LTCS date is scheduled. Counseled patient to call triage/go to labor and delivery if she has any vaginal bleeding, leaking of fluid, vaginal pressure, 6 or more painful contractions in an hour, abdominal pain, decreased movements, headaches, blurry vision, or right upper quadrant pain. Patient verbalized understanding. RTO in 1 week for return appointment or sooner if any concerns. Trisha Alanis PA-C documented in this encounter Plan of Treatment Upcoming Encounters Date Type Department Care Team (Late st Contact Info) Description 09/08/2023 9:00 AM EDT Office Visit Gynecology/Obstetrics [facility] [address] [place] [address] Nina Nino PA-C [address] [place] [address] 09/14/2023 2:15 PM EDT Office Visit Gynecology/Obstetrics [facility] [address] [place] [address] Kasey Styles CRNP [address] [place] [address] 09/20/2023 1:30 PM EDT Office Visit Gynecology/Obstetrics [facility] [address] [place] [address] Marko Watts MD [address] [place] [address] 10/03/2023 1:45 PM EDT Office Visit Gynecology/Obstetrics [facility] [address] [place] [address] Kasey Styles CRNP [address] [place] [address] Pending Results Name Type Priority Associated Diagnoses Date /Time GROUP B STREP CULTURE/PCR Lab Routine Encounter for supervision of other normal in third trimester 08/30/2023 3:31 PM EDT VAGINOSIS PANEL, PCR Lab Routine Vaginal spotting 08/30/2023 3:39 PM EDT CULTURE, URINE, QUANTITATIVE Lab Routine Vaginal spotting 08/30/2023 3:58 PM EDT Health Maintenance Due Date Last Done Comments [...] Not on filedocumented as of this encounter Visit Diagnoses Diagnosis Encounter for supervision of other normal in third trimester- Primary History of section complicating Previous delivery, unspecified as to episode of care or not applicable Anxiety and depression Dysthymic disorder Antepartum anemia complicating Anemia, antepartum Vaginal spotting Other specified noninflammatory disorder of vagina documented in this encounter Care Teams Reproduction Production Manager Relationship Specialty Start Date End Date Genaro Long MD [address] [place] [address] [phone] PCP - General Family Medicine 08/15/14 documented as of this encounter"
--- OUTSIDE RECORDS SUMMARY | 2023-09-26 08:59 | External Medical Summary | Summary of Care ---
Author Name Unknown Organization [facility] Address [address] [place] [address] Phone [phone] Care Team Providers Care Acoustical Engineer Name Role Phone Genaro Long MD Primary Care Provider [phone] Reason for Visit * Reason Comments Return Visit Encounter Details Date Type Department Care Team (Late st Contact Info) Description 09/14/2023 2:15 PM EDT Office Visit Gynecology/Obstetric s [facility] [address] [place] [address] Kasey Styles CRNP [address] [place] [address] Encounter for supervision of other normal in third trimester*; History of section complicating ; Anxiety and depression; Antepartum anemia complicating Allergies Active Allergy Reactions Criticality Noted Date Comments Cephalosporins 01/24/2001 Food (See Comments) Hives 05/03/2010 documented as of this encounter (statuses as of 09/14/2023) Medications Medication Sig Dispensed Refills Start Date [...] as of this encounter (statuses as of 09/14/2023) Active Problems Problem Noted Date Diagnosed Date [...] as of this encounter (statuses as of 09/14/2023) Resolved Problems Problem Noted Date Diagnosed Date Resolved Date Carrier of group B Streptococcus 02/17/2021 08/19/2023 , normal first 01/12/202107/14 MICHELLE (generalized anxiety disorder) 08/06/2020 08/01/2022 Overview: Hydroxyzine Hcl prn ADVANCE DIRECTIVE INFORMATION 06/02/2005 07/09/2019 Overview: Not applicable (under age of 18) documented as of this encounter (statuses as of 09/14/2023) Immunizations Name Administration Dates Next Due HPV [...] money to get more. Never true 05/02/2023 [place] Depression Scale Answer Date Recorded [place] Depression Scale Total 7 08/17/2023 The thought [...] Sign Reading Time Taken Comments Blood Pressure 132/78 09/14/2023 1:58 PM EDT Pulse - - Temperature - - Respiratory Rate - - Oxygen Saturation - - Inhaled Oxygen Concentration - - Weight 108.4 kg (239 lb) 09/14/2023 1:58 PM EDT Height 162.6 cm (5' 4") 09/14/2023 1:58 PM EDT Body Mass Index 41.02 09/14/2023 1:58 PM EDT documented in this encounter Functional [...] as of this encounter Progress Notes * Kaesy Styles CRNP - 09/14/2023 2:31 PM EDT 37w6d Feeling more pelvic pressure, no contractions. Baby is active. No bleeding or LOF. C/s scheduled with BTL. Die Reamer Documentation Provider requested clerical and office support workers. Name of clerical and office support workers: TUNG Burnette documented in this encounter Nursing Notes * Patricia Boswell LPN - 09/14/2023 2:08 PM EDT 37w6d Would like cervical exam- feeling lots of pelvic pressure. documented in this encounter Plan of Treatment Upcoming Encounters Date Type Department Care Team (Late st Contact Info) Description 09/20/2023 1:30 PM EDT Office Visit Gynecology/Obstetrics [facility] [address] [place] [address] Marko Watts MD [address] [place] [address] 10/03/2023 1:45 PM EDT Office Visit Gynecology/Obstetrics [facility] [address] [place] [address] Kasey Styles CRNP [address] [place] [address] Health Maintenance Due Date Last Done Comments COVID-19 Vaccine ( season) 2023 Influenza Vaccine (FLU shot) (Season Ended) 2024 Gonorrhea / Chlamydia Screen 02/22/202405/2023, 07/14/2020, 01/08/2018, [...] Dysthymic disorder Antepartum anemia complicating Anemia, antepartum documented in this encounter Care Teams Acoustical Engineer Relationship Specialty Start Date End Date Genaro Long MD [address] [place] [id number] PCP - General Family Medicine 08/15/14 documented as of this encounter
--- OUTSIDE RECORDS SUMMARY | 2023-09-26 08:59 | External Medical Summary | Summary of Care ---
Author Name Unknown Organization [facility] Address [address] [facility] [place] [address] Phone [phone] Care Team Providers Care Data Center Architect Name Role Phone Genaro Long MD Primary Care Provider [phone] Reason for Visit * Reason Comments Return Visit Encounter Details Date Type Department Care Team (Late st Contact Info) Description 09/08/2023 9:00 AM EDT Office Visit Gynecology/Obstetric s [facility] [address] [place] [address] Nina Nino PA-C [address] [place] [address] Encounter for supervision of other normal in third trimester*; History of section complicating ; Anxiety and depression; Antepartum anemia complicating Allergies Active Allergy Reactions Criticality Noted Date Comments Cephalosporins 01/24/2001 Food (See Comments) Hives 05/03/2010 documented as of this encounter (statuses as of 09/08/2023) Medications Medication Sig Dispensed Refills Start Date End Date Status Adult Gummy/DHA/FA 0.4-25 MG Oral Tablet Chewable Take by mouth. 0 Activ e Sertraline HCl 25 MG Oral Tablet (Zoloft)Indicatio ns:Anxiety and depression Take 1 Tablet by mouth daily. 90 Tablet 2 04/14/2023 Active Iron-Vitamin C 65-125 MG Oral Tablet (Vitron C) Take 1 Tablet by mouth in the morning. 90 Tablet 3 07/04/2023 Active metroNIDAZOLE 0.75 % Vaginal Gel (Metrogel-Vaginal ) Administer 1 Applicatorful into the vagina every night at bedtime for 5 days. 70 g 0 09/04/2023 09/09/2023 Active documented as of this encounter (statuses as of 09/08/2023) Active Problems Problem Noted Date Diagnosed Date [...] as of this encounter (statuses as of 09/08/2023) Resolved Problems Problem Noted Date Diagnosed Date Resolved Date Carrier of group B Streptococcus 02/17/2021 08/19/2023 , normal first 01/12/202107/14 MICHELLE (generalized anxiety disorder) 08/06/2020 08/01/2022 Overview: Hydroxyzine Hcl prn ADVANCE DIRECTIVE INFORMATION 06/02/2005 07/09/2019 Overview: Not applicable (under age of 18) documented as of this encounter (statuses as of 09/08/2023) Immunizations Name Administration Dates Next Due HPV [...] money to get more. Never true 05/02/2023 [place] Depression Scale Answer Date Recorded [place] Depression Scale Total 7 08/17/2023 The thought [...] Sign Reading Time Taken Comments Blood Pressure 108/70 09/08/2023 8:46 AM EDT Pulse - - Temperature - - Respiratory Rate - - Oxygen Saturation - - Inhaled Oxygen Concentration - - Weight 106.6 kg (235 lb) 09/08/2023 8:46 AM EDT Height 162.6 cm (5' 4") 09/08/2023 8:46 AM EDT Body Mass Index 40.34 09/08/2023 8:46 AM EDT documented in this encounter Functional Status [...] as of this encounter Progress Notes * Nina Nino PA-C - 09/08/2023 9:14 AM EDT 37w0d Transferring from [facility], plans [place] delivery. Without complaints. Denies VB, LOF, contractions. Pos fm. Feels like baby dropped. Has ERCS with BTL scheduled on 09/26/2023. GBS positive. Labor precautions and packet given. RTC in 1 week Nina Nino PA-C documented in this encounter Nursing Notes * Patricia Boswell LPN - 09/08/2023 9:04 AM EDT 37w0d Denies concerns documented in this encounter Plan of Treatment Upcoming Encounters Date Type Department Care Team (Late st Contact Info) Description 09/14/2023 2:15 PM EDT Office Visit Gynecology/Obstetrics [facility] [address] [place] [address] Kasey Styles CRNP [address] [place] [address] 09/20/2023 1:30 PM EDT Office Visit Gynecology/Obstetrics [facility] [address] [place] [address] Marko Watts MD [address] [place] [address] 10/03/2023 1:45 PM EDT Office Visit Gynecology/Obstetrics [facility] [address] [place] [address] Kasey Styles CRNP [address] [place] [address] Health Maintenance Due Date Last Done Comments COVID-19 Vaccine (2022-24 season) 2023 Influenza Vaccine (FLU shot) (#1) [...] antepartum documented in this encounter Care Teams Data Center Architect Relationship Specialty Start Date End Date Genaro Long MD [address] [place] [address] PCP - General Family Medicine 08/15/14 documented as of this encounter
--- OUTSIDE RECORDS SUMMARY | 2023-09-26 08:59 | External Medical Summary ---
Author Name Unknown Address Unknown Organization K01:[facility] [place] - [address] [facility] [place] [place] [address] Laboratory Report Ordering Provider Test Date Status CURTIS BARNETT 08/30/2023 15:58:04 Final Observation Date Value Abnormality Reference (Units) Status Bacteria identified in Specimen by Culture 08/30/2023 15:58:04 No significant growth Final Test: Culture, Urine, Quanti tative
Specimen Source: Urine, Clean Catch
Specimen Type: Urine
Specimen Date: 08/30/2023 3:58 PM
Result Date: 08/31/2023 3:50 PM
Result Status: Final result
Resulting Lab: [facility] [place]
[address]
[facility] [address]

CULTURE

No significant growth

null Performing Location [facility] [place] - [address] [place] [facility] [address]
--- OUTSIDE RECORDS SUMMARY | 2023-09-26 08:59 | External Medical Summary | Summary of Care ---
Author Name Unknown Organization [facility] Address [address] 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 Encounter Details Date Type Department Care Team (Late st Contact Info) Description 09/20/2023 1:30 PM EDT Office Visit Gynecology/Obstetric s [facility]i [facility] [address] [place] [address] Marko Watts MD [address] [place] [address] History of section complicating *; Encounter for supervision of normal first in third trimester; Anxiety and depression; Antepartum anemia complicating ; Preop testing Allergies Active Allergy Reactions Criticality Noted Date Comments Cephalosporins 01/24/2001 Food (See Comments) Hives 05/03/2010 documented as of this encounter (statuses as of 09/20/2023) Medications Medication Sig Dispensed Refills Start Date [...] as of this encounter (statuses as of 09/20/2023) Active Problems Problem Noted Date Diagnosed Date [...] as of this encounter (statuses as of 09/20/2023) Resolved Problems Problem Noted Date Diagnosed Date Resolved Date Carrier of group B Streptococcus 02/17/2021 08/19/2023 , normal first 01/12/202107/14 MICHELLE (generalized anxiety disorder) 08/06/2020 08/01/2022 Overview: Hydroxyzine Hcl prn ADVANCE DIRECTIVE INFORMATION 06/02/2005 07/09/2019 Overview: Not applicable (under age of 18) documented as of this encounter (statuses as of 09/20/2023) Immunizations Name Administration Dates Next Due HPV [...] money to get more. Never true 05/02/2023 [place] Depression Scale Answer Date Recorded [place] Depression Scale Total 7 08/17/2023 The thought [...] Sign Reading Time Taken Comments Blood Pressure 120/72 09/20/2023 1:19 PM EDT Pulse - - Temperature - - Respiratory Rate - - Oxygen Saturation - - Inhaled Oxygen Concentration - - Weight 108 kg (238 lb) 09/20/2023 1:19 PM EDT Height 162.6 cm (5' 4") 09/20/2023 1:19 PM EDT Body Mass Index 40.85 09/20/2023 1:19 PM EDT documented in this encounter Functional [...] as of this encounter Progress Notes * Marko Watts MD - 09/20/2023 1:47 PM EDT Pt doing well No complaints H&P done Consent obtained Pt reports allergy yo cephalosporin- non specific. Was told this by parents A CHILD . DOES NOT THINK THERE WAS ANAPHYLAXIS WILL CHECK RECORDS FOR PREOP ANTIBX GIVEN AT LAST C/SECTION documented in this encounter H&P Notes * Marko Watts MD - 09/20/2023 1:44 PM EDT [address] [address] Appt line [phone] Afia Saunders is a 22 year old year old year old at 38w5d Patient is . 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 Denies h/o STDs and abnormal Paps. Her past medical/surgical histories and current medications are recorded in the electronic record. 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: [employer] Tobacco Use Smoking status: Never Smokeless tobacco: Never Vaping Use Vaping Use: Never used Substance and Sexual Activity Alcohol use: Not Currently Comment: occasional Drug use: No Sexual activity: Yes control/protection: Pill Other Topics Concern Not on file Social History Narrative Not on file Social Determinants of Health Financial Resource Strain: Not on file Food Insecurity: No Food Insecurity (05/02/2023) Hunger Vital Sign Worried About Running Out of Food in the Last Year: Never true Ran Out of Food in the Last Year: Never true Transportation Needs: Not on file Physical Activity: Not on file Stress: Not on file Social Connections: Not on file Intimate Partner Violence: Not on file Housing Stability: Not on file @[employer]@ Physical Exam: BP 120/72 | Ht 1.626 m (5' 4") | Wt 108 kg (238 lb) | LMP 01/09/2023 (Approximate) | BMI 40.85 kg/m | BSA 2.21 m CV: S1, S2. Regular rate and Rhythm Lungs: Clear to auscultation bilaterally. Abdomen: Soft with a gravid uterus and palpable contractions. Fundal Height: 37cms heart rate: 140/min Extremities: Soft non tender calves bilaterally. A/P: 22 year old year old at term Prior section with to have repeat c/sec and bilateral tubal removal We have discussed the risk alternatives and complications of surgery including more surgery to correct complication,risk of anesthesia,infection,damage to internal organs and . We have also discussed the possibility that pt's present situation may not change. Pt is aware and wishes to proceed to surgery. Consent is signed Pt is scheduled for Repeat c/sec and Bilateral tubal removal Marko Watts MD 09/20/2023 1:44 PM documented in this encounter Nursing Notes * Adrianne De Luna LPN - 09/20/2023 1:02 PM EDT 38w5d Pt needs pre-op repeat csection documented in this encounter Plan of Treatment Upcoming Encounters Date Type Department Care Team ([facility] Contact Info) Description 10/03/2023 1:45 PM EDT Office Visit Gynecology/Obstetrics [facility]i [facility] [address] [place] [address] Kasey Styles CRNP [address] [place] [address] Health Maintenance Due Date Last Done Comments COVID-19 Vaccine ( season) 2023 Influenza Vaccine (FLU shot) (Season Ended) 2024 Gonorrhea / Chlamydia Screen 02/22/202405/2023, 07/14/2020, 01/08/2018, Additional history exists Pap Smear 04/23/2024 04/23/2021 DTaP,Tdap,and Td Vaccines (10 - Td or [...] as of this encounter Visit Diagnoses Diagnosis History of section complicating - Primary Previous delivery, unspecified as to episode of care or not applicable Encounter for supervision of normal first in third trimester Supervision of normal first Anxiety and depression Dysthymic disorder Antepartum anemia complicating Anemia, antepartum Preop testing Preoperative examination, unspecified documented in this encounter Care Teams Decker Operator Relationship Specialty Start Date End Date Genaro Long MD [address] [place] [address] [place] [address] PCP - General Family Medicine 08/15/14 documented as of this encounter
--- OUTSIDE RECORDS SUMMARY | 2023-09-26 08:59 | External Medical Summary | Summary of Care ---
Author Name Unknown Organization [facility] Address [address] [facility] [place] [address] Phone [phone] Care Team Providers Care Hydrometer Tester Name Role Phone Genaro Long MD Primary Care Provider [phone] Encounter Details Date Type Department Care Team (Late st Contact Info) Description 08/31/2023 Telephone Gynecology/Obstetrics [facility] [address] [facility] [place] [address] Corine Nunes MD [address] [facility] [place] [address] Allergies Active Allergy Reactions Criticality Noted Date [...] money to get more. Never true 05/02/2023 [place] Depression Scale Answer Date Recorded [place] Depression Scale Total 7 08/17/2023 The thought [...] encounter Miscellaneous Notes * Telephone Encounter - Kirsten House LPN - 08/31/2023 8:52 AM EDT ----- Message from Corine Nunes MD sent at 08/31/2023 6:51 AM EDT ----- Please kindly let patient know I reviewed the ultrasound, baby is head down in fluid is normal Thank you ----- Message ----- From: Alec Escalona In Sent: 08/30/2023 4:43 PM EDT To: Corine Nunes MD documented in this encounter Plan of Treatment Upcoming Encounters Date Type Department Care Team (Late st Contact Info) Description 09/08/2023 9:00 AM EDT Office Visit Gynecology/Obstetrics [address] [place] [address] Nina Nino PA-C [address] [place] [address] 09/14/2023 2:15 PM EDT Office Visit Gynecology/Obstetrics [facility] [address] [place] [address] Kasey Styles CRNP [address] [place] [address] 09/20/2023 1:30 PM EDT Office Visit Gynecology/Obstetrics [facility] [address] [place] [address] Marko Watts MD [address] [place] [address] 10/03/2023 1:45 PM EDT Office Visit Gynecology/Obstetrics [facility] [address] [place] [address] Kasey Styles CRNP [address] [place] [address] Health Maintenance Due Date Last Done Comments [...] filedocumented as of this encounter Care Teams Hydrometer Tester Relationship Specialty Start Date End Date Genaro Long MD [address] [place] [address] PCP - General Family Medicine 08/15/14 documented as of this encounter
--- OUTSIDE RECORDS SUMMARY | 2023-09-26 08:59 | External Medical Summary ---
Author Name Unknown Address Unknown Organization K01:[facility] [place] [address] [facility] [address] [facility] [address] Laboratory Report Ordering Provider Test Date Status CURTIS BARNETT 08/30/2023 15:39:02 Final Observation Date Value Abnormality Reference (Units ) Status Bacterial vaginosis [Interpretation] in Vaginal fluid Qualitative 08/30/2023 15:39:02 Positive Abnormal Negative Final Positive for Bacterial Vagin osis. Correlate results with other clinical findings. Shasta sp DNA [Presence] in Vaginal fluid by Probe 08/30/2023 15:39:02 Negative Negative Final No Shasta species group RNA detected. Correlate results with other clinical findings. Shasta glabrata RNA [Presen ce] in Vaginal fluid by DAISY with probe detection 08/30/2023 15:39:02 Negative Negative Final No Shasta glabrata RNA dete cted. Correlate results with other clinical findings. Trichomonas vaginalis DNA [P resence] in Vaginal fluid by Probe 08/30/2023 15:39:02 Negative Negative Final No Trichomonas vaginalis RNA detected. Performing Location [facility] - [address] [facility] [address] [facility] [address]
--- OUTSIDE RECORDS SUMMARY | 2023-09-26 09:00 | External Medical Summary | Summary of Care ---
Author Name Unknown Organization [facility] Address [address] [place] [address] Phone [phone] Care Team Providers Care Business Proposal Rep Name Role Phone Genaro Long MD Primary Care Provider Reason for Visit * Reason Comments Return Visit Encounter Details Date Type Department Care Team (Late st Contact Info) Description 08/17/2023 3:00 PM EST Office Visit Gynecology/Obstetics [facility] [address] [place] [address] Trisha Savage PA-C [address] [place] [address] Encounter for supervision of other normal in third trimester*; History of section complicating ; Anxiety and depression; Antepartum anemia complicating Allergies Active Allergy Reactions Criticality Noted Date Comments Cephalosporins 01/24/2001 Food (See Comments) Hives 05/03/2010 documented as of this encounter (statuses as of 08/18/2023) Medications Medication Sig Dispensed Refills Start Date End Date Status Adult Gummy/DHA/FA 0.4-25 MG Oral Tablet Chewable Take by mouth. 0 Active Sertraline HCl 25 MG Oral Tablet (Zoloft)Indications :Anxiety and depression Take 1 Tablet by mouth daily. 90 Tablet 2 04/14/2023 Active Iron-Vitamin C 65-125 MG Oral Tablet (Vitron C) Take 1 Tablet by mouth in the morning. 90 Tablet 3 07/04/2023 Active Additional Information Patient not taking.Reported on 07/19/2023 documented as of this encounter (statuses as of 08/18/2023) Active Problems Problem Noted Date Diagnosed Date [...] x 1. Desires repeat and tubal ligation. Carrier of group B Streptococcus 02/17/2021 Rubella non-immune status, antepartum 02/05/2021 Postural orthostatic [...] as of this encounter (statuses as of 08/18/2023) Resolved Problems Problem Noted Date Diagnosed Date Resolved Date , normal first 01/12/202107/14 MICHELLE (generalized anxiety disorder) 08/06/2020 08/01/2022 Overview: Hydroxyzine Hcl prn ADVANCE DIRECTIVE INFORMATION 06/02/2005 07/09/2019 Overview: Not applicable (under age of 18) documented as of this encounter (statuses as of 08/18/2023) Immunizations Name Administration Dates Next Due HPV [...] money to get more. Never true 05/02/2023 [place] Depression Scale Answer Date Recorded [place] Depression Scale Total 7 08/17/2023 The thought [...] Sign Reading Time Taken Comments Blood Pressure 122/70 08/17/2023 2:50 PM EST Pulse - - Temperature - - Respiratory Rate - - Oxygen Saturation - - Inhaled Oxygen Concentration - - Weight 104 kg (229 lb 4.8 oz) 08/17/2023 2:50 PM EST Height - - Body Mass Index 39.36 08/01/2022 2:47 PM EST documented in this encounter Functional Status Functional [...] Progress Notes * Trisha Savage PA-C - 08/17/2023 3:23 PM EST Afia Saunders presents for visit at 33w6d. BP 122/70 | Wt 104 kg (229 lb 4.8 oz) | LMP 01/09/2023 (Approximate) | BMI 39.36 kg/m | BSA 2.17 m Doing well. Denies vaginal bleeding, leaking of fluid, vaginal pressure, contractions, abdominal pain, or abnormal vaginal discharge. Denies blurry vision, or right upper quadrant pain.Patient has infrequent headaches that resolve. Patient states she feels good movement. Patient has some intermittent vaginal pressure when sitting to standing.. Patient has some scar stretching pain. Physical Exam General: alert and oriented, no acute distress Pulmonary: normal respiratory effort, no accessory muscle use. Abdomen: gravid, soft, non-tender heart rate: 130's pbm Fundal height: 33cm [place] Problems (from 02/07/23 to present) Problem Noted Resolved Antepartum anemia complicating 07/19/2023 by Trisha Savage PA-C No Repeat CBC ordered. Anxiety and depression 03/21/2023 by Trisha Savage PA-C No Patient reports that mood is stable. Declines counseling. Denies suicidal or homicidal thoughts. [...] 1. Desires repeat and tubal ligation. Plan: -Message sent about scheduling and tubal ligation now for [address] [facility]. Message sent to [facility]. Medicaid consent signed in case needed. -CBC ordered to follow up on anemia. -GBS culture at 36 weeks. -Suspect stretching at the area of her previous incision. Counseled patient on symptoms to monitor for. -Patient has appointment scheduled with Cathi [facility] to transfer care. Counseled patient to call triage/go to labor and delivery if she has any vaginal bleeding, leaking of fluid, vaginal pressure, 6 or more painful contractions in an hour, abdominal pain, decreased movements, headaches, blurry vision, or right upper quadrant pain. Patient verbalized understanding. RTO in 2 weeks for return appointment or sooner if any concerns. Trisha Alanis PA-C documented in this encounter Nursing Notes * Mary Melgar CCMA - 08/17/2023 2:50 PM EST Pt here for gita visit - reports pain at scar documented in this encounter Plan of Treatment Upcoming Encounters Date Type Department Care Team (Late st Contact Info) Description 08/31/2023 3:15 PM EDT Office Visit Gynecology/Obstetics [facility] [address] [place] [phone] Trisha Savage PA-C [address] [place] [address] 09/08/2023 9:00 AM EDT Office Visit Gynecology/Obstetrics [facility] [address] [place] [address] Nina Nino PA-C [address] [place] [address] Health Maintenance Due Date Last Done Comments [...] antepartum documented in this encounter Care Teams Business Proposal Rep Relationship Specialty Start Date End Date Genaro Long MD [address] [place] [address] PCP - General Family Medicine 08/15/14 documented as of this encounter"
--- OUTSIDE RECORDS SUMMARY | 2023-09-26 09:00 | External Medical Summary | Summary of Care ---
Author Name Unknown Organization [facility] Address [address] [place] [address] Phone [phone] Care Team Providers Care Log Snaker Name Role Phone Genaro Long MD Primary Care Provider [phone] Reason for Visit * Reason Onset Date Comments MyCode Nonconsent - Not interested at this time 08/03/2023 Encounter Details Date Type Department Care Team (Late st Contact Info) Description 08/03/2023 Orders Only Outcomes Research Department [address] [place] [address] Marleny Rothman CHRA MyCode Nonconsent Documentation Allergies Active Allergy Reactions Criticality Noted Date Comments Cephalosporins 01/24/2001 Food (See Comments) Hives 05/03/2010 documented as of this encounter (statuses as of 08/03/2023) Medications Medication Sig Dispensed Refills Start Date [...] as of this encounter (statuses as of 08/03/2023) Active Problems Problem Noted Date Diagnosed Date [...] as of this encounter (statuses as of 08/03/2023) Resolved Problems Problem Noted Date Diagnosed Date Resolved Date , normal first 01/12/202107/14 MICHELLE (generalized anxiety disorder) 08/06/2020 08/01/2022 Overview: Hydroxyzine Hcl prn ADVANCE DIRECTIVE INFORMATION 06/02/2005 07/09/2019 Overview: Not applicable (under age of 18) documented as of this encounter (statuses as of 08/03/2023) Immunizations Name Administration Dates Next Due HPV [...] Date Recorded PHQ Adult Total Score 0 08/01/2022 Hunger Vital Sign Answer Date Recorded Within the past 12 months, y ou worried that your food would run out before you got the money to buy more. Never true 05/02/20 23 Within the past 12 months, t he food you bought just didn't last and you didn't have money to get more. Never true 05/02/2023 [place] Depression Scale Answer Date Recorded [place] Depression Scale Total 7 07/05/2023 The thought of harming myself has occurred to me . Never 07/05/2023 Estimated Date of Delivery Comme nts Yes [...] as of this encounter Progress Notes * Marleny Rothman CHRA - 08/03/2023 3:12 PM EST MyCode Nonconsent Documentation Afia Saunders was approached in the clinic regarding participation in the MyCode Project and did notconsent. documented in this encounter Plan of Treatment Upcoming Encounters Date Type Department Care Team (Late st Contact Info) Description 08/17/2023 3:00 PM EST Office Visit [facility]necology[facility]stetics [place] [facility] [phone] Trisha Savage PA-C 68 [facility] [place] [address] 08/31/2023 3:15 PM EDT Office Visit Gynecology/Obstetics [place] 68 [facility] [place] [phone] Trisha Savage PA-C [address] [place] [address] 09/08/2023 9:00 AM EDT [facility] [address] [place] [address] Nina Nino PA-C [address] [place] [address] Health Maintenance Due Date Last Done Comments COVID-19 Vaccine (2022- season) 2023 Influenza Vaccine (FLU shot) (#1) 2023 Depression Screening 08/01/2023 08/01/2022 Gonorrhea / Chlamydia Screen 02/22/202405/2023, 07/14/2020, 01/08/2018, [...] filedocumented as of this encounter Care Teams Log Snaker Relationship Specialty Start Date End Date Genaro Long MD [address] [place] [address] PCP - General Family Medicine 08/15/14 documented as of this encounter
--- OUTSIDE RECORDS SUMMARY | 2023-09-26 09:00 | External Medical Summary ---
Author Name Unknown Address Unknown Organization [id number]:[facility] [address] [place] [address] Laboratory Report Ordering Provider Test Date Status CURTIS BARNETT 08/17/2023 15:36:43 Final Observation Date Value Abnormality Reference (Units ) Status Ferritin 08/17/2023 15:36:43 8 Below low normal 13- 150 (ng/mL) Final Performing Location [facility] - [address] [place] [address]
--- OUTSIDE RECORDS SUMMARY | 2023-09-26 09:00 | External Medical Summary | Summary of Care ---
Author Name Unknown Organization [facility] Address [address] [place] [address] Phone [phone] Care Team Providers Care Paper Reel Operator Name Role Phone Genaro Long MD Primary Care Provider [phone] Reason for Visit * Reason Onset Date Comments Appointment 08/18/2023 Encounter Details Date Type Department Care Team ([facility] st Contact Info) Description 08/18/2023 Telephone Gynecology/Obstetics [place] [address] [place] [address] Trisha Savage PA-C [address] [place] [address] Appointment Allergies Active Allergy Reactions Criticality Noted Date [...] money to get more. Never true 05/02/2023 [place] Depression Scale Answer Date Recorded [place] Depression Scale Total 7 08/17/2023 The thought [...] encounter Miscellaneous Notes * Telephone Encounter - Adrianne De Luna LPN - 08/18/2023 12:35 PM EST Please get pt schedule with a physician before her scheduled appt with nina pt is transferring from and needs to discuss csection and tubal * Telephone Encounter - Adrianne De Luna LPN - 08/18/2023 12:32 PM EST EVERT Mak pt is transferring form to [facility] to deliver at [facility] needs repeat csection along with wantinga tubal needs scheduled in 39 weeks pts BRIGHT is 09/29/23 * Telephone Encounter - Nina Nino PA-C - 08/18/2023 12:23 PM EST Probably would be best to have her seen prior to 37 weeks for transfer of care given C/S and tubal and try to coordinate with physician so counseling and consents can be completed. Can you route this to Aubree so she is at least aware of this patient in regards to scheduling. Looks like would be 09/21-09/27 if 39 wks. Please help to reschedule. Thank you! Nina Nino PA-C * Telephone Encounter - Adrianne De Luna LPN - 08/18/2023 12:09 PM EST Would you want pt to be seen sooner then 37 weeks? pt needs repeat csection with tubal and is scheduled with you for her first visit would you like her to see a doc? * Telephone Encounter - Trisha Savage PA-C - 08/18/2023 11:23 AM EST Patient is asking if and tubal ligation can be scheduled now for 39 weeks at [facility]. Patient has appointment scheduled with Nina Nino PA-C to establish care. Thank you. documented in this encounter Plan of Treatment Upcoming Encounters Date Type Department Care Team (Late st Contact Info) Description 08/31/2023 3:15 PM EDT Office Visit Gynecology/Obstetics [place] [address] [place] [phone] Trisha Savage PA-C [facility] [place] [address] 09/08/2023 9:00 AM EDT Office Visit Gynecology/Obstetrics [facility] [address] [place] [address] Nina Nino PA-C [address] [place] [address] Health Maintenance Due Date Last Done Comments [...] filedocumented as of this encounter Care Teams Paper Reel Operator Relationship Specialty Start Date End Date Genaro Long MD [address] [place], [place] [address] [address] PCP - General Family Medicine 08/15/14 documented as of this encounter
--- OUTSIDE RECORDS SUMMARY | 2023-09-26 09:00 | External Medical Summary ---
Author Name Unknown Address Unknown Organization K01:[facility] [place] [facility] [address] [place] [address] Laboratory Report Ordering Provider Test Date Status CURTIS BARNETT 08/17/2023 15:36:43 Final Observation Date Value Abnormality Reference (Units ) Status Creatinine 08/17/2023 15:36:43 0.6 0.5-1.0 (mg/dL) Final Glomerular filtration rate/1.73 sq M.predicted [Volume Rate/Area] in Serum, Plasma or Blood by Creatinine-based formula (CKD-EPI) 08/17/2023 15:36:43 >90 >=60 (mL/min) Final eGFR is calculated based on the CKD-EPI 2020 equation Performing Location [facility] [place] [facility] [address] [place] [address]
--- OUTSIDE RECORDS SUMMARY | 2023-09-26 09:00 | External Medical Summary ---
Author Name Unknown Address Unknown Organization K01:[facility] - [address] [place] [address] Laboratory Report Ordering Provider Test Date Status CURTIS BARNETT 08/17/2023 15:36:43 Final Observation Date Value Abnormality Reference (Units ) Status SYNC LEUKOCYTES IN BLOOD BY AUTOMATED COUNT 08/17/2023 15:36:43 7.30 4.00-10.80 (K/uL) Final Segs 08/17/2023 15:36:43 74.3 40.0-75.0 (%) Final Lymphs % 08/17/2023 15:36:43 13.4 Below low normal 18.0-42.0 (%) Final Monos 08/17/2023 15:36:43 10.1 1.0-11.0 (%) Final Eosinophils 08/17/2023 15:36:43 1.5 0.0-6.0 (%) Final Basos 08/17/2023 15:36:43 0.4 0.0-2.0 (%) Final Immature Granulocyte, Percent 08/17/2023 15:36:43 0.3 0.0-2.0 (%) Final Absolute Segs 08/17/2023 15:36:43 5.42 1.80-7.70 (K/uL) Final Lymphs, absolute 08/17/2023 15:36:43 0.98 Below low normal 1.00-4.80 (K/ul) Final Monos, Abs 08/17/2023 15:36:43 0.74 0.00-1.10 (K/uL) Final Eos, Abs 08/17/2023 15:36:43 0.11 0.00-0.70 (K/uL) Final Basos, Abs 08/17/2023 15:36:43 0.03 0.00-0.20 (K/uL) Final Immature Granulocytes, Number 08/17/2023 15:36:43 0.02 0.00-0.20 (K/uL) Final Performing Location [facility] [place] - [address] [facility] [address]
--- OUTSIDE RECORDS SUMMARY | 2023-09-26 09:00 | External Medical Summary | Summary of Care ---
Author Name Unknown Organization [facility] Address [address] [facility] [place] [address] Phone [phone] Care Team Providers Care Book Agent Name Role Phone Gnearo Long MD Primary Care Provider [phone] Encounter Details Date Type Department Care Team (Late st Contact Info) Description 08/07/2023 Orders Only PATIENT PORTAL DO NOT DELETE THIS DEPT USED BY [place] [address] Allergies Active Allergy Reactions Criticality Noted Date Comments Cephalosporins 01/24/2001 Food (See Comments) Hives 05/03/2010 documented as of this encounter (statuses as of 08/07/2023) Medications Medication Sig Dispensed Refills Start Date [...] as of this encounter (statuses as of 08/07/2023) Active Problems Problem Noted Date Diagnosed Date [...] as of this encounter (statuses as of 08/07/2023) Resolved Problems Problem Noted Date Diagnosed Date Resolved Date , normal first 01/12/202107/14 MICHELLE (generalized anxiety disorder) 08/06/2020 08/01/2022 Overview: Hydroxyzine Hcl prn ADVANCE DIRECTIVE INFORMATION 06/02/2005 07/09/2019 Overview: Not applicable (under age of 18) documented as of this encounter (statuses as of 08/07/2023) Immunizations Name Administration Dates Next Due HPV [...] money to get more. Never true 05/02/2023 [place] Depression Scale Answer Date Recorded [place] Depression Scale Total 7 07/05/2023 The thought [...] No 08/15/2014 documented as of this encounter Plan of Treatment Upcoming Encounters Date Type Department Care Team (Late st Contact Info) Description 08/17/2023 3:00 PM EST Office Visit Gynecology/Obstetics [place] 68 [facility] [place] [phone] Trisha Savage PA-C [address] [place] [address] 08/31/2023 3:15 PM EDT Office Visit Gynecology/Obstetics [place] [facility] [place] [address] Trisha Savage PA-C [address] [place] [address] 09/08/2023 9:00 AM EDT Office Visit Gynecology/Obstetrics [facility] [address] [place] [address] Nina Nino PA-C [address] [place] [address] Health Maintenance Due Date Last Done Comments [...] filedocumented as of this encounter Care Teams Book Agent Relationship Specialty Start Date End Date Genaro Long MD [address] [place] [phone] PCP - General Family Medicine 08/15/14 documented as of this encounter
--- OUTSIDE RECORDS SUMMARY | 2023-09-26 09:00 | External Medical Summary ---
Author Name Unknown Address Unknown Organization K01:[facility] - [address] [place] [address] Laboratory Report Ordering Provider Test Date Status CURTIS BARNETT 08/17/2023 15:36:43 Final Observation Date Value Abnormality Reference (Units ) Status WBC, Total 08/17/2023 15:36:43 7.30 4.00-10.8 0 (K/uL) Final RBC 08/17/2023 15:36:43 4.48 3.85-5.15 (M/uL) Final Hemoglobin 08/17/2023 15:36:43 11.5 Below low normal 12 .0-15.3 (g/dL) Final Anemia reflex testing trigge rs on a HGB < 12.0 for Females and HGB < 13.0 for Males in accordance with the WHO Anemia Guidelines HCT 08/17/2023 15:36:43 36.7 36.0-45.2 (%) Final MCV 08/17/2023 15:36:43 81.9 81.5-97.5 (fL) Final MCH 08/17/2023 15:36:43 25.7 27.0-34.0 (pg) Final MCHC 08/17/2023 15:36:43 31.3 32.0-36.0 (g/dL) Final RDW 08/17/2023 15:36:43 14.1 11.5-15.5 (%) Final Platelets 08/17/2023 15:36:43 218 140-400 (K /uL) Final MPV 08/17/2023 15:36:43 14.1 6.6-11.1 ( fL) Final Nucleated erythrocytes/100 leukocytes [Ratio] in Blood by Automated count 08/17/2023 15:36:43 0 <=0 (/100 WBCs) Fi nal Performing Location [facility] - [address] [place] [address]
--- OUTSIDE RECORDS SUMMARY | 2023-09-26 09:00 | External Medical Summary | Summary of Care ---
Author Name Unknown Organization [facility] Address [address] [place] [address] Phone [phone] Care Team Providers Care Rehabilitation Center Manager Name Role Phone Genaro Long MD Primary Care Provider [phone] Reason for Visit * Reason Comments Return Visit Encounter Details Date Type Department Care Team (Late st Contact Info) Description 08/25/2023 3:15 PM EDT Office Visit Gynecology/Obstetric [facility] 132 [facility] [place] [address] Corine Nunes MD [address] [place] [address] 35 weeks gestation of *; Encounter for supervision of other normal in third trimester; History of section complicating ; Antepartum anemia complicating ; Anxiety and depression Allergies Active Allergy Reactions Criticality Noted Date Comments Cephalosporins 01/24/2001 Food (See Comments) Hives 05/03/2010 documented as of this encounter (statuses as of 08/25/2023) Medications Medication Sig Dispensed Refills Start Date [...] as of this encounter (statuses as of 08/25/2023) Active Problems Problem Noted Date Diagnosed Date [...] as of this encounter (statuses as of 08/25/2023) Resolved Problems Problem Noted Date Diagnosed Date Resolved Date Carrier of group B Streptococcus 02/17/2021 08/19/2023 , normal first 01/12/202107/14 MICHELLE (generalized anxiety disorder) 08/06/2020 08/01/2022 Overview: Hydroxyzine Hcl prn ADVANCE DIRECTIVE INFORMATION 06/02/2005 07/09/2019 Overview: Not applicable (under age of 18) documented as of this encounter (statuses as of 08/25/2023) Immunizations Name Administration Dates Next Due DTaP Dipth/Tet/Acell Pertussis (Infanrix), Peds 2004,06/15/2001,07/07/2000,03/10,01/12/2000 HIB PRP-T, 4 dose (ActHib) 03/09/2001,,03/10/2000,01/11 HPV Vaccine, 9-Valent 07/14/2017,03/10/2017,12/11 Hepatitis B, 0-19 yrs 10/13/2000,03/10/2000,0807/1999 IPV - Polio Virus Vaccine (Inact) 2004,06/15/2001,03/10/2000,01/11 MMR - Measles/Mumps/Rubella Vaccine 2004,0 01/04/2001 Meningococcal Conjugate Vacc ine (Menactra/Menveo) 12/25/2015,03/01/2011 PPD 07/15/2020,07/31/2018,11/27/2017 Pneumococcal Conjugate Vacci ne, 7 Valent 03/09/2001,10/13/2000,07/07/2000 Seasonal Influenza, Split, I IV3, With Preserve, Inj 09/06/2010() TDAP (age 10 and older)(Boostrix) 07/05/2023,07/2020,07/15/2020 TDAP (age 11 and older)(Adacel) 02/09/2010 Varicella Vaccine (Chicken Pox) 02/09/2010,01/04 documented as of this encounter Social History [...] money to get more. Never true 05/02/2023 [place] Depression Scale Answer Date Recorded [place] Depression Scale Total 7 08/17/2023 The thought [...] Sign Reading Time Taken Comments Blood Pressure 122/64 08/25/2023 2:47 PM EDT Pulse - - Temperature - - Respiratory Rate - - Oxygen Saturation - - Inhaled Oxygen Concentration - - Weight 105.2 kg (232 lb) 08/25/2023 2:47 PM EDT Height 162.6 cm (5' 4") 08/25/2023 2:47 PM EDT Body Mass Index 39.82 08/25/2023 2:47 PM EDT documented in this [...] as of this encounter Progress Notes * Corine Nunes MD - 08/25/2023 3:15 PM EDT Patient is 22 year old at 35 0/7 weeks who presents for FILIBERTO visit Denies contractions, leaking of fluid, or vaginal bleeding. Noted good movement Denies headache, blurry vision, RUQ or epigastric pain. Problem list reviewed BP 122/64 | Ht 1.626 m (5' 4") | Wt 105.2 kg (232 lb) | LMP 01/09/2023 (Approximate) | BMI 39.82 kg/m | BSA 2.18 m FH: 33 FHT: 144 ?breech on exam Plan: Labor and preeclampsia warnings reviewed Flu vaccine declined Scheduled for repeat C section and bilateral salpingectomy at 39 weeks at [facility] with MD Ultrasound for position check ordered RTC 1 week for GBS V Manju MANCILLA PhD documented in this encounter Nursing Notes * Patricia Boswell LPN - 08/25/2023 2:52 PM EDT [id number] Transferring care from , prefers [facility] delivery. Denies concerns. documented in this encounter Plan of Treatment Upcoming Encounters Date Type Department Care Team (Late st Contact Info) Description 08/30/2023 2:15 PM EDT Imaging Radiology, [address] [address] 08/30/2023 3:30 PM EDT Office Visit Gynecology/Obstetics [place] [facility] [place] [address] Trisha Savage PA-C 68 [place] [address] 09/08/2023 9:00 AM EDT Office Visit Gynecology/Obstetrics [facility] [address] [place] [address] Nina Nino PA-C [address] [place] [address] 09/14/2023 2:15 PM EDT Office Visit Gynecology/Obstetrics [facility] [address] [place] [address] Kasey Styles CRNP [address] [place] [address] 09/20/2023 1:30 PM EDT Office Visit Gynecology/Obstetrics [facility] [address] [place] [address] Marko Watts MD [address] [place] [address] 10/03/2023 1:45 PM EDT Office Visit Gynecology/Obstetrics [facility] [address] [place] [address] Kasey Styles CRNP [address] [place] [address] Scheduled Orders Name Type Priority Associated Diagnoses Orde r Schedule US PREG LIMITED 1 OR MORE FETUSES Medical Imaging Routine 35 weeks gestation of Expected: 08/25/2023, Expires: 09/24/2024 Health Maintenance Due Date Last Done Comments [...] as of this encounter Visit Diagnoses Diagnosis 35 weeks gestation of - Primary state, incidental Encounter for supervision of other normal in third trimester History of section complicating Previous delivery, unspecified as to episode of care or not applicable Antepartum anemia complicating Anemia, antepartum Anxiety and depression Dysthymic disorder documented in this encounter Care Teams Rehabilitation Center Manager Relationship Specialty Start Date End Date Genaro Long MD [address] [place] [id number] PCP - General Family Medicine 08/15/14 documented as of this encounter
--- OUTSIDE RECORDS SUMMARY | 2023-09-26 09:00 | External Medical Summary | Summary of Care ---
Author Name Unknown Organization [facility] Address [address] [place] [address] Phone [phone] Care Team Providers Care Carton Folder Name Role Phone Genaro Long MD Primary Care Provider [phone] Reason for Visit * Reason Comments Return Visit Encounter Details Date Type Department Care Team ([facility] st Contact Info) Description 07/05/2023 9:30 AM EST Office Visit Gynecology/Obstetics [place] [address] [place] [address] Trisha Savage PA-C [address] [place] [address] Encounter for supervision of other normal in second trimester*; Anxiety and depression; History of section complicating ; Need for prophylactic vaccination with combined yrwsxwnueh-gduizwe-oj rtussis (DTP) vaccine Allergies Active Allergy Reactions Criticality Noted Date Comments Cephalosporins 01/24/2001 Food (See Comments) Hives 05/03/2010 documented as of this encounter (statuses as of 07/08/2023) Medications Medication Sig Dispensed Refills Start Date [...] as of this encounter (statuses as of 07/08/2023) Active Problems Problem Noted Date Diagnosed Date Anxiety and depression 03/21/2023 Overview: Desires assistance [...] as of this encounter (statuses as of 07/08/2023) Resolved Problems Problem Noted Date Diagnosed Date Resolved Date , normal first 01/12/202107/14 MICHELLE (generalized anxiety disorder) 08/06/2020 08/01/2022 Overview: Hydroxyzine Hcl prn ADVANCE DIRECTIVE INFORMATION 06/02/2005 07/09/2019 Overview: Not applicable (under age of 18) documented as of this encounter (statuses as of 07/08/2023) Immunizations Name Administration Dates Next Due HPV [...] money to get more. Never true 05/02/2023 [place] Depression Scale Answer Date Recorded [place] Depression Scale Total 7 07/05/2023 The thought [...] Sign Reading Time Taken Comments Blood Pressure 110/74 07/05/2023 9:27 AM EST Pulse - - Temperature - - Respiratory Rate - - Oxygen Saturation - - Inhaled Oxygen Concentration - - Weight 97.8 kg (215 lb 11.2 oz) 07/05/2023 9:27 AM EST Height - - Body Mass Index 37.02 08/01/2022 2:47 PM EST documented in this [...] Progress Notes * Trisha Savage PA-C - 07/05/2023 9:29 AM EST Afia Saunders presents for visit at 27w5d. BP 110/74 | Wt 97.8 kg (215 lb 11.2 oz) | LMP 01/09/2023 (Approximate) | BMI 37.02 kg/m | BSA 2.1m Doing well. Denies vaginal bleeding, leaking of fluid, vaginal pressure, contractions, abdominal pain, or abnormal vaginal discharge. Denies headaches, blurry vision, or right upper quadrant pain. Patient states she feels good movement. Patient reports that mood is stable. Physical Exam General: alert and oriented, no acute distress Pulmonary: normal respiratory effort, no accessory muscle use. Abdomen: gravid, soft, non-tender heart rate: 150's bpm Fundal height: 27 cm [place] Problems (from 02/07/23 to present) Problem Noted Resolved Anxiety and depression 03/21/2023 by Trisha Savage PA-C No Desires assistance with medication. Prescription given for [...] - complete and within normal limits. Variable. Declines influenza vaccine and declines COVID-19 vaccine. contraception: tubal ligation. Desires to breastfeed. Has a breast pump. History of section complicating 02/21/2023 by Trisha Savage PA-C No History of x 1. Desires repeat and tubal ligation. Plan: -Patient desires Tdap vaccine today. -Patient declines influenza vaccine. -A positive. Rhogam not indicated. -Passed 1 hour glucose test. -Patient is aware of anemia and is going to take the Vitron C. -Desires repeat and tubal ligation. Counseled patient to call triage/go to labor [...] documented in this encounter Nursing Notes * Mayr Melgar CCMA - 07/05/2023 9:46 AM EST Pre-Administration Time Out Procedure Performed: Yes Patient Identified (Ask Name/Date of ): Yes Does the patient have a fever greater than 101 degrees today? No Patient allergic to latex? No Has the patient ever fainted after receiving an injection? No VFC Stock: No Immunization(s) verified: Yes, Immunization Name: Tdap (Boostrix), VIS Sheet(s) given: Yes Verified Side and Site: Yes Verified Shot(s) with Parent(s)/Patient: Yes * Mary Melgar CCMA - 07/05/2023 9:27 AM EST Pt here for gita - no concerns documented in this encounter Plan of Treatment Upcoming Encounters Date Type Department Care Team (Late st Contact Info) Description 07/19/2023 9:30 AM EST Office Visit Gynecology/Obstetics [place] [address] [place] [address] Trisha Savage PA-C [address] [place] [address] 08/03/2023 3:15 PM EST Office Visit Gynecology/Obstetics [place] [address] [place] [address] Trisha Savage PA-C [address] [place] [address] 08/17/2023 3:00 PM EST Office Visit Gynecology/Obstetics [place] [address] [place] [address] Trisha Savage PA-C [address] [place] [address] 08/31/2023 3:15 PM EDT Office Visit Gynecology/Obstetics [place] [address] [place] [phone] Trisha Savage PA-C [address] [place] [address] 09/08/2023 9:00 AM EDT Office Visit Gynecology/Obstetrics Cathi Harrison [address] [facility] [place] [address] Nina Nino PA-C [address] [facility] [place] [address] Health Maintenance Due Date Last Done Comments COVID-19 Vaccine (#1) 05/27/2000 Influenza Vaccine (FLU shot) (#1) 2023 Depression [...] Encounter for supervision of other normal in second trimester- Primary Anxiety and depression Dysthymic disorder History of section complicating Previous delivery, unspecified as to episode of care or not applicable Need for prophylactic vaccination with combined emhwnezbtk-nhtpdvx-iwwsxctsw (DTP) vaccine documented in this encounter Care Teams Carton Folder Relationship Specialty Start Date End Date Genaro Long MD [address] [place] [phone] PCP - General Family Medicine 08/15/14 documented as of this encounter"
--- OUTSIDE RECORDS SUMMARY | 2023-09-26 09:00 | External Medical Summary | Summary of Care ---
Author Name Unknown Organization [facility] Address [address] [place] [address] Phone [phone] Care Team Providers Care Denial Management Representative Name Role Phone Genaro Long MD Primary Care Provider [phone] Reason for Visit * Reason Onset Date Comments Test Results 08/18/2023 Encounter Details Date Type Department Care Team ([facility] st Contact Info) Description 08/18/2023 Telephone Gynecology/Obstetics [place] [address] [place] [address] Trisha Savage PA-C [address] [place] [address] Test Results Allergies Active Allergy [...] money to get more. Never true 05/02/2023 [place] Depression Scale Answer Date Recorded [place] Depression Scale Total 7 08/17/2023 The thought [...] Encounter - Trisha Savage PA-C - 08/18/2023 3:36 PM EST Spoke with patient. Patient notified that CBC shows iron deficiency anemia. Patient is going to try taking the oral iron at bedtime. Patient will let me know how this goes. documented in this encounter Plan of Treatment Upcoming Encounters Date Type Department Care Team (Late st Contact Info) Description 08/25/2023 3:15 PM EDT Office Visit Gynecology/Obstetrics [facility] 132 [facility] [place] [address] Corine Nunes MD [address] [place] [address] [place] [address] 08/31/2023 3:15 PM EDT Office Visit [facility]necology[facility]etics [place] [facility] [phone] Trisha Savage PA-C [address] [facility] [address] 09/08/2023 9:00 AM EDT Office Visit Gynecology/Obstetrics [facility] [address] [place] [address] Nina Nino PA-C [address] [place] [address] Health Maintenance Due Date Last Done Comments [...] filedocumented as of this encounter Care Teams Denial Management Representative Relationship Specialty Start Date End Date Genaro Long MD [address] [place], [place] [address] PCP - General Family Medicine 08/15/14 documented as of this encounter
--- OUTSIDE RECORDS SUMMARY | 2023-09-26 09:00 | External Medical Summary | Summary of Care ---
Author Name Unknown Organization [facility] Address [address] [place] [address] Phone [phone] Care Team Providers Care Key Operator Name Role Phone Genaro Long MD Primary Care Provider [phone] Reason for Visit * Reason Comments Return Visit Encounter Details Date Type Department Care Team (Late st Contact Info) Description 08/03/2023 3:15 PM EST Office Visit Gynecology/Obstetics [place] [address] [place] [address] Trisha Savage PA-C [address] [place] [address] Encounter for supervision of other normal in third trimester*; History of section complicating ; Anxiety and depression; Antepartum anemia complicating Allergies Active Allergy Reactions Criticality Noted Date Comments Cephalosporins 01/24/2001 Food (See Comments) Hives 05/03/2010 documented as of this encounter (statuses as of 08/05/2023) Medications Medication Sig Dispensed Refills Start Date [...] as of this encounter (statuses as of 08/05/2023) Active Problems Problem Noted Date Diagnosed Date [...] as of this encounter (statuses as of 08/05/2023) Resolved Problems Problem Noted Date Diagnosed Date Resolved Date , normal first 01/12/202107/14 MICHELLE (generalized anxiety disorder) 08/06/2020 08/01/2022 Overview: Hydroxyzine Hcl prn ADVANCE DIRECTIVE INFORMATION 06/02/2005 07/09/2019 Overview: Not applicable (under age of 18) documented as of this encounter (statuses as of 08/05/2023) Immunizations Name Administration Dates Next Due HPV [...] money to get more. Never true 05/02/2023 [place] Depression Scale Answer Date Recorded [place] Depression Scale Total 7 07/05/2023 The thought [...] Sign Reading Time Taken Comments Blood Pressure 122/60 08/03/2023 3:12 PM EST Pulse - - Temperature - - Respiratory Rate - - Oxygen Saturation - - Inhaled Oxygen Concentration - - Weight 101.5 kg (223 lb 12.8 oz) 08/03/2023 3:12 PM EST Height - - Body Mass Index 38.42 08/01/2022 2:47 PM EST documented in this [...] Progress Notes * Trisha Savage PA-C - 08/03/2023 3:18 PM EST Afia Saunders presents for visit at 31w6d. BP 122/60 | Wt 101.5 kg (223 lb 12.8 oz) | LMP 01/09/2023 (Approximate) | BMI 38.42 kg/m | BSA 2.14 m Doing well. Denies vaginal bleeding, leaking [...] non-tender heart rate: 140's bpm Fundal height: 31 cm [place] Problems (from 02/07/23 to present) Problem Noted Resolved Antepartum anemia complicating 07/19/2023 by Trisha Savage PA-C No Did not tolerate oral iron well. Will repeat CBC NEXT appointment to follow up. Anxiety and depression 03/21/2023 by Trisha Savage [...] 1. Desires repeat and tubal ligation. Plan: -A positive blood type. -Patient reports that mood is stable. -Desires repeat and tubal ligation. Medicaid consent not needed. -Desires to deliver at [facility] - appointment already scheduled at [facility] for 36weeks. -Will closely follow up on anemia with repeat CBC soon. Counseled patient to call triage/go to labor [...] 08/17/2023 3:00 PM EST Office Visit Gynecology/Obstetics [place] [address] [place] [address] Trisha Savage PA-C [address] [place] [address] 08/31/2023 3:15 PM EDT Office Visit Gynecology/Obstetics [place] [address] [place] [address] Trisha Savage PA-C [address] [place] [address] 09/08/2023 9:00 AM EDT Office Visit Gynecology/Obstetrics [facility] [address] [facility] [place] [address] Nina Nino PA-C [address] [place] [address] Scheduled Orders Name Type Priority Associated Diagnoses Orde r Schedule CBC WITH WBC DIFFERENTIAL AND ANEMIA REFLEX WORKUP Lab Routine Antepartum anemia complicating Expected: 08/05/2023, Expires: 08/05/2024 Health Maintenance Due Date Last Done Comments [...] antepartum documented in this encounter Care Teams Key Operator Relationship Specialty Start Date End Date Genaro Long MD [address] [place] [address] PCP - General Family Medicine 08/15/14 documented as of this encounter"
--- OUTSIDE RECORDS SUMMARY | 2023-09-26 09:00 | External Medical Summary | Summary of Care ---
Author Name Unknown Organization [facility] Address [address] [place] [address] Phone [phone] Care Team Providers Care Police Lieutenant Precinct Name Role Phone Genaro Long MD Primary Care Provider [phone] Reason for Visit * Reason Comments Return Visit Encounter Details Date Type Department Care Team (Late st Contact Info) Description 07/19/2023 9:30 AM EST Office Visit Gynecology/Obstetics [place] [address] [place] [address] Trisha Savage PA-C [address] [place] [address] Encounter for supervision of other normal in third trimester*; History of section complicating ; Anxiety and depression; Antepartum anemia complicating Allergies Active Allergy Reactions Criticality Noted Date Comments Cephalosporins 01/24/2001 Food (See Comments) Hives 05/03/2010 documented as of this encounter (statuses as of 07/19/2023) Medications Medication Sig Dispensed Refills Start Date [...] as of this encounter (statuses as of 07/19/2023) Active Problems Problem Noted Date Diagnosed Date [...] as of this encounter (statuses as of 07/19/2023) Resolved Problems Problem Noted Date Diagnosed Date Resolved Date , normal first 01/12/202107/14 MICHELLE (generalized anxiety disorder) 08/06/2020 08/01/2022 Overview: Hydroxyzine Hcl prn ADVANCE DIRECTIVE INFORMATION 06/02/2005 07/09/2019 Overview: Not applicable (under age of 18) documented as of this encounter (statuses as of 07/19/2023) Immunizations Name Administration Dates Next Due HPV [...] money to get more. Never true 05/02/2023 [place] Depression Scale Answer Date Recorded [place] Depression Scale Total 7 07/05/2023 The thought [...] Sign Reading Time Taken Comments Blood Pressure 124/68 07/19/2023 9:26 AM EST Pulse - - Temperature - - Respiratory Rate - - Oxygen Saturation - - Inhaled Oxygen Concentration - - Weight 99.5 kg (219 lb 6.4 oz) 07/19/2023 9:26 A M EST Height - - Body Mass Index 37.66 08/01/2022 2:47 PM EST documented in this [...] Progress Notes * Trisha Savage PA-C - 07/19/2023 9:32 AM EST Afia Saunders presents for visit at 29w5d. BP 124/68 | Wt 99.5 kg (219 lb 6.4 oz) | LMP 01/09/2023 (Approximate) | BMI 37.66 kg/m | BSA 2.12m Doing well. Denies vaginal bleeding, leaking of fluid, vaginal pressure, contractions, abdominal pain, or abnormal vaginal discharge. Denies headaches, blurry vision, or right upper quadrant pain. Patient states she feels good movement. Patient reports that mood has been stable. Patient did not tolerate iron well. Physical Exam General: alert and oriented, no acute distress Pulmonary: normal respiratory effort, no accessory muscle use. Abdomen: gravid, soft, non-tender heart rate: 130's bpm Fundal height: 29 cm [place] Problems (from 02/07/23 to present) Problem Noted Resolved Antepartum anemia complicating 07/19/2023 by Trisha Savage PA-C No Did not tolerate oral iron well. Will repeat CBC NEXT appointment to follow up. Anxiety and depression 03/21/2023 by Trisha Savage PA-C No Patient reports mood is stable. Denies suicidal or homicidal thoughts. Patient agrees [...] Desires repeat and tubal ligation. Plan: -Patient stopped iron due to not tolerating well. Continue vitamin. Will retest CBC at next appointment. -Tdap vaccine completed. -A positive. - contraception: tubal ligation with . -Desires to deliver at [facility]. -Patient reports that mood is stable. Counseled patient to call triage/go to labor [...] documented in this encounter Nursing Notes * Delmy Acosta RN - 07/19/2023 9:27 AM EST Patient presents for return visit. Reports iron pill was making her nauseous and is currently not taking it. documented in this encounter Plan of Treatment Upcoming Encounters Date Type Department Care Team (Late st Contact Info) Description 08/03/2023 3:15 PM EST Office Visit Gynecology/Obstetics [place] [address] [place] [address] [phone] Trisha Savage PA-C [address] [place] [address] 08/17/2023 3:00 PM EST Office Visit Gynecology/Obstetics [place] [address] [place] [address] Trisha Savage PA-C [address] [place] [address] 08/31/2023 3:15 PM EDT Office Visit Gynecology/Obstetics [place] [address] [place] [address] Trisha Savage PA-C [address] [place] [address] 09/08/2023 9:00 AM EDT Office Visit Gynecology/Obstetrics [facility] [address] [place] [address] Nina Nino PA-C [address] [place] [address] Health Maintenance Due Date Last Done Comments [...] antepartum documented in this encounter Care Teams Police Lieutenant Precinct Relationship Specialty Start Date End Date Genaro Long MD [address] [place] [address] [place] [address] PCP - General Family Medicine 08/15/14 documented as of this encounter"
--- OUTSIDE RECORDS SUMMARY | 2023-09-26 09:00 | External Medical Summary | Summary of Care ---
Author Name Unknown Organization [facility] Address [address] [place] [address] Phone [phone] Care Team Providers Care Emt I/85 Name Role Phone Genaro Long MD Primary Care Provider [phone] Reason for Visit * Reason Comments Outpatient Testing Encounter Details Date Type Department Care Team ([facility] st Contact Info) Description 08/17/2023 3:40 PM [facility] Laboratory Laboratory Patient Service [address] [phone] [address] Antepartum anemia complicating Allergies Active Allergy Reactions Criticality Noted Date Comments Cephalosporins 01/24/2001 Food (See Comments) Hives 05/03/2010 documented as of this encounter (statuses as of 08/17/2023) Medications Medication Sig Dispensed Refills Start Date [...] as of this encounter (statuses as of 08/17/2023) Active Problems Problem Noted Date Diagnosed Date [...] as of this encounter (statuses as of 08/17/2023) Resolved Problems Problem Noted Date Diagnosed Date Resolved Date , normal first 01/12/202107/14 MICHELLE (generalized anxiety disorder) 08/06/2020 08/01/2022 Overview: Hydroxyzine Hcl prn ADVANCE DIRECTIVE INFORMATION 06/02/2005 07/09/2019 Overview: Not applicable (under age of 18) documented as of this encounter (statuses as of 08/17/2023) Immunizations Name Administration Dates Next Due HPV [...] money to get more. Never true 05/02/2023 [place] Depression Scale Answer Date Recorded [place] Depression Scale Total 7 08/17/2023 The thought [...] 08/31/2023 3:15 PM EDT Office Visit Gynecology/Obstetics [place] [address] [place] [address] Trisha Savage PA-C [address] [place] [address] 09/08/2023 9:00 AM EDT Office Visit Gynecology/Obstetrics [place] [address] [place] [address] Nina Nino PA-C [address] [place] [address] Pending Results Name Type Priority Associated Diagnoses Date /Time CBC WITH WBC DIFFERENTIAL AND ANEMIA REFLEX WORKUP Lab Routine Antepartum anemia complicating 08/17/2023 3:36 PM EST ANEMIA CBC Lab Routine Antepartum anemia complicating 08/17/2023 3:36 PM EST DIFFERENTIAL, AUTOMATED Lab Routine Antepartum anemia complicating 08/17/2023 3:36 PM EST ANEMIA REFLEX CHEMISTRY HOLD Lab Routine Antepartum anemia complicating 08/17/2023 3:36 PM EST Health Maintenance Due Date Last Done Comments [...] as of this encounter Visit Diagnoses Diagnosis Antepartum anemia complicating Anemia, antepartum documented in this encounter Care Teams Emt I/85 Relationship Specialty Start Date End Date Genaro Long MD [address] [place] [address] PCP - General Family Medicine 08/15/14 documented as of this encounter
--- OUTSIDE RECORDS SUMMARY | 2023-09-26 09:00 | External Medical Summary | Summary of Care ---
Author Name Unknown Organization [facility] Address [address] [place] [address] Phone [phone] Care Team Providers Care Geospatial Technician Name Role Phone Genaro Long MD Primary Care Provider [phone] Reason for Visit * Reason Comments Return Visit Encounter Details Date Type Department Care Team (Late st Contact Info) Description 08/25/2023 3:15 PM EDT Office Visit Gynecology/Obstetric [facility] 132 [facility] [place] [address] Corine Nunes MD [address] [place] [address] 35 weeks gestation of [...] money to get more. Never true 05/02/2023 [place] Depression Scale Answer Date Recorded [place] Depression Scale Total 7 08/17/2023 The thought [...] and bilateral salpingectomy at 39 weeks at [facility] with MD Ultrasound for position check ordered RTC 1 week for GBS V Manju MANCILLA PhD documented in this encounter Nursing Notes * Patricia Boswell LPN - 08/25/2023 2:52 PM EDT 35w0d Transferring care from , prefers [facility] delivery. Denies concerns. documented in this encounter Plan of Treatment Upcoming Encounters Date Type Department Care Team (Late st Contact Info) Description 08/30/2023 2:15 PM EDT Imaging Radiology, [address] [address] 08/30/2023 3:30 PM EDT Office Visit Gynecology/Obstetics [place] [facility] [place] [address] Trisha Savage PA-C [facility] [place] [place] [address] 09/08/2023 9:00 AM EDT Office Visit Gynecology/Obstetrics [facility] [address] [place] [address] Nina Nino PA-C [address] [place] [address] 09/14/2023 2:15 PM EDT Office Visit Gynecology/Obstetrics [facility] [address] [place] [address] Kasey Styles CRNP [address] [place] [address] 09/20/2023 1:30 PM EDT Office Visit Gynecology/Obstetrics [facility] [address] [place] [address] Marko Watts MD [address] [place] [address] 10/03/2023 1:45 PM EDT Office Visit Gynecology/Obstetrics [facility] [address] [place] [address] Kasey Styles CRNP [address] [place] [address] Scheduled Orders Name Type Priority Associated Diagnoses [...] disorder documented in this encounter Care Teams Geospatial Technician Relationship Specialty Start Date End Date Genaro Long MD [address] [place] [address] PCP - General Family Medicine 08/15/14 documented as of this encounter
--- OUTSIDE RECORDS SUMMARY | 2023-09-26 09:00 | External Medical Summary | Summary of Care ---
Author Name Unknown Organization [facility] Address [address] [place] [address] Phone [phone] Care Team Providers Care Mop Worker Name Role Phone Genaro Long MD Primary Care Provider [phone] Reason for Visit * Reason Onset Date Comments Appointment 08/18/2023 Encounter Details Date Type Department Care Team ([facility] st Contact Info) Description 08/18/2023 Telephone Gynecology/Obstetics [place] [address] [place] [address] Trisha Savage PA-C [address] [place] [address] Appointment Allergies Active Allergy Reactions [...] Diagnosed Date Resolved Date , normal first 01/12/2021 02/2 MICHELLE (generalized anxiety disorder) 08/06/2020 08/01/2022 Overview: Hydroxyzine Hcl prn ADVANCE DIRECTIVE INFORMATION 06/02/2005 07/09/2019 Overview: Not applicable (under age of 18) documented as of this encounter (statuses as of 08/18/2023) Immunizations Name Administration Dates Next Due DTaP [...] money to get more. Never true 05/02/2023 [place] Depression Scale Answer Date Recorded [place] Depression Scale Total 7 08/17/2023 The thought [...] encounter Miscellaneous Notes * Telephone Encounter - Emilia Saenz MED ASSIST - 08/18/2023 1:03 PM EST Appt scheduled with , pt aware. Pt wishes to keep current appts and will schedule out when she ishere on 08/25/2023. * Telephone Encounter - Adrianne De Luna LPN - 08/18/2023 12:35 PM EST Please get pt schedule with a physician before her scheduled appt with nina pt is transferring from and needs to discuss csection and tubal * Telephone Encounter - Adrianne De Luna LPN - 08/18/2023 12:32 PM EST EVERT Mak pt is transferring form to [facility] to deliver at [facility] needs repeat csection along with wantinga tubal [...] be scheduled now for 39 weeks at [facility]. Patient has appointment scheduled with Nina Nino PA-C to establish care. Thank you. documented in this encounter Plan of Treatment Upcoming Encounters Date Type Department Care Team (Late st Contact Info) Description 08/25/2023 3:15 PM EDT Office Visit Gynecology/Obstetrics [facility] [address] [place] [address] Corine Nunes MD [address] [place] [address] [place] [address] 08/31/2023 3:15 PM EDT Office Visit Gynecology/Obstetics [place] [address] [place] [phone] Trisha Savage PA-C [address] [place] [address] 09/08/2023 9:00 AM EDT Office Visit Gynecology/Obstetrics [facility] [address] [place] [address] Nina Nino PA-C [address] [place] [address] Health Maintenance Due Date Last Done Comments COVID-19 Vaccine (2022-24 season) 2023 Influenza Vaccine (FLU shot) (#1) 2023 Gonorrhea / Chlamydia Screen 02/22/20243, 07/14/2020, 01/08/2018, Additional history exists Pap Smear [...] filedocumented as of this encounter Care Teams Mop Worker Relationship Specialty Start Date End Date Genaro Long MD [address] [place] [address] PCP - General Family Medicine 08/15/14 documented as of this encounter
--- OUTSIDE RECORDS SUMMARY | 2023-09-26 09:00 | External Medical Summary ---
Author Name Unknown Address Unknown Organization [id number]:[facility] [place] - [address] [place] [address] Laboratory Report Ordering Provider Test Date Status CURTIS BARNETT 08/17/2023 15:36:43 Final Observation Date Value Abnormality Reference (Units ) Status Retic, % (auto) 08/17/2023 15:36:43 2.07 Above high normal 0.80-1.90 (%) Final Reticulocytes, Absolute 08/17/2023 15:36:43 91.9 31.3-100.1 (K/uL) Final Reticulocyte fraction, immature 08/17/2023 15:36:43 28.2 Above high normal 2.5-20.6 (%) Final Reticulocyte HGB 08/17/2023 15:36:43 25.1 Below low normal 29.7-37.4 (pg) Final Performing Location [facility] [place] - [facility] [place] [address]
--- OUTSIDE RECORDS SUMMARY | 2023-09-26 09:01 | External Medical Summary ---
Author Name Unknown Address Unknown Organization [id number][place] [facility] [address] [facility] [address] Laboratory Report Ordering Provider Test Date Status TONY LEE 07/03/2023 09:05:49 Final Observation Date Value Abnormality Reference (Units ) Status WBC, Total 07/03/2023 09:05:49 6.11 4.00-10.80 (K/uL) Final RBC 07/03/2023 09:05:49 4.20 3.85-5.15 (M/uL) Final Hemoglobin 07/03/2023 09:05:49 11.0 Below low normal 12.0-15.3 (g/dL) Final HCT 07/03/2023 09:05:49 35.5 Below low normal 36.0-45.2 (%) Final MCV 07/03/2023 09:05:49 84.5 81.5-97.5 (fL) Final MCH 07/03/2023 09:05:49 26.2 27.0-34.0 (pg) Final MCHC 07/03/2023 09:05:49 31.0 32.0-36.0 (g/dL) Final RDW 07/03/2023 09:05:49 13.2 11.5-15.5 (%) Final Platelets 07/03/2023 09:05:49 207 140-400 (K/uL) Final MPV 07/03/2023 09:05:49 13.7 6.6-11.1 (fL) Final Nucleated erythrocytes/100 leukocytes [Ratio] in Blood by Automated count 07/03/2023 09:05:49 0 <=0 (/100 WBCs) Final Performing Location [facility] [place] [address] [place] [address]
--- OUTSIDE RECORDS SUMMARY | 2023-09-26 09:01 | External Medical Summary | Summary of Care ---
Author Name Unknown Organization [facility] Address [address] [place] [address] Phone [phone] Care Team Providers Care Cocoa Milling Machine Operator Name Role Phone Genaro Long MD Primary Care Provider [phone] Reason for Visit * Reason Onset Date Comments Advice 07/04/2023 Encounter Details Date Type Department Care Team ([facility] st Contact Info) Description 07/04/2023 Telephone Gynecology/Obstetics [place] [address] [place] [address] Rodriguez Palafox MD [address] [place] [address] Advice Allergies Active Allergy Reactions Criticality Noted Date Comments Cephalosporins 01/24/2001 Food (See Comments) Hives 05/03/2010 documented as of this encounter (statuses as of 07/04/2023) Medications Medication Sig Dispensed Refills Start Date [...] as of this encounter (statuses as of 07/04/2023) Active Problems Problem Noted Date Diagnosed Date [...] Declines influenza vaccine and declines COVID-19 vaccine. History of section complicating pregnan cy 02/21/2023 [...] 14. Last seen and released to PCP /u 2015 Last Assessment & Plan: CONSIDERATIONS: POTS [...] as of this encounter (statuses as of 07/04/2023) Resolved Problems Problem Noted Date Diagnosed Date Resolved Date , normal first 01/12/2021 02/2 MICHELLE (generalized anxiety disorder) 08/06/2020 08/01/2022 Overview: Hydroxyzine Hcl prn ADVANCE DIRECTIVE INFORMATION 06/02/2005 07/09/2019 Overview: Not applicable (under age of 18) documented as of this encounter (statuses as of 07/04/2023) Immunizations Name Administration Dates Next Due HPV Vaccine, 9-Valent 07/14/2017,03/10/2017,12/11 Meningococcal Conjugate Vacc ine (Menactra/Menveo) 12/25/2015,03/01/2011 PPD 07/15/2020,07/31/2018,11/27/2017 Seasonal Influenza, Split, I IV3, With Preserve, Inj 09/06/2010() TDAP (age 10 and older)(Boostrix) 12/11/2020,08/2020 TDAP (age 11 and older)(Adacel) 02/09/2010 Varicella [...] money to get more. Never true 05/02/2023 Anthony Depression Scale Answer Date Recorded Anthony Depression Scale Total 6 02/21/2023 The thought of harming myself has occurred to me . Never 02/21/2023 Estimated Date of Delivery Comme nts Yes [...] encounter Miscellaneous Notes * Telephone Encounter - Rodriguez Palafox MD - 07/04/2023 9:19 AM EST Please advise at risk for anemia in this recommend po iron daily medication sent to pharmacy. Advise call with concerns or questions documented in this encounter Plan of Treatment Upcoming Encounters Date Type Department Care Team ([facility] st Contact Info) Description 07/05/2023 9:30 AM EST Office Visit Gynecology/Obstetics [place] [address] [place] [phone] Trisha Savage PA-C [address] [place] [address] 07/19/2023 9:30 AM EST Office Visit Gynecology/Obstetics [place] [address] [facility] [address] Trisha Savage PA-C [address] [facility] [address] 08/03/2023 9:00 AM EST Office Visit [facility] [address] [place] [address] Caroline Pittman PA-C [address] [place] [address] Health Maintenance Due Date Last Done Comments COVID-19 Vaccine (#1) 05/27/2000 Influenza Vaccine (FLU shot) (#1) 2023 Depression Screening 08/01/2023 08/01/2022 Gonorrhea / Chlamydia Screen 02/22/202405/2023, 07/14/2020, 01/08/2018, Additional history exists Pap Smear 04/23/2024 04/23/2021 DTaP,Tdap,and Td Vaccines (9 - Td or Tdap) 12/11/2030 12/11/2020, 07/15/2020, 02/09/2010, Additional history exists Hepatitis B Completed 10/13/2000, [...] filedocumented as of this encounter Care Teams Cocoa Milling Machine Operator Relationship Specialty Start Date End Date Genaro Long MD [address] [place] [address] PCP - General Family Medicine 08/15/14 documented as of this encounter
--- OUTSIDE RECORDS SUMMARY | 2023-09-26 09:01 | External Medical Summary | Summary of Care ---
Author Name Unknown Organization [facility] Address [address] [place] [address] Phone [phone] Care Team Providers Care Administrative Aide Name Role Phone Genaro Long MD Primary Care Provider [phone] Reason for Visit * Reason Comments Return Visit Encounter Details Date Type Department Care Team ([facility] st Contact Info) Description 04/18/2023 4:00 PM EST Office Visit Gynecology/Obstetics [place] [address] [place] [phone] Trisha Savage PA-C [address] [place] [address] Encounter for supervision of other normal in second trimester*; History of section complicating ; Anxiety and depression Allergies Active Allergy Reactions Criticality Noted Date Comments Cephalosporins 01/24/2001 Food (See Comments) Hives 05/03/2010 documented as of this encounter (statuses as of 04/18/2023) Medications Medication Sig Dispensed Refills Start Date End Date Status Adult Gummy/DHA/FA 0.4-25 MG Oral Tablet Chewable Take by mouth. 0 Active Sertraline HCl 25 MG Oral Tablet (Zoloft)Indications:A nxiety and depression Take 1 Tablet by mouth daily. 90 Tablet 2 04/14/2023 Active documented as of this encounter (statuses as of 04/18/2023) Active Problems Problem Noted Date Diagnosed Date [...] not immune. Varicella immune. Declines genetic testing. Anatomy ultrasound at 20 weeks - ordered. Declines influenza vaccine and declines COVID-19 vaccine. [...] as of this encounter (statuses as of 04/18/2023) Resolved Problems Problem Noted Date Diagnosed Date Resolved Date , normal first 01/12/2021 02/2 MICHELLE (generalized anxiety disorder) 08/06/2020 08/01/2022 Overview: Hydroxyzine Hcl prn ADVANCE DIRECTIVE INFORMATION 06/02/2005 07/09/2019 Overview: Not applicable (under age of 18) documented as of this encounter (statuses as of 04/18/2023) Immunizations Name Administration Dates Next Due HPV [...] the money to buy more. Never true 08/01/19 23 Within the past 12 months, t he food you bought just didn't last and you didn't have money to get more. Never true 08/01/2022 [place] Depression Scale Answer Date Recorded [place] Depression Scale Total 6 02/21/2023 The thought [...] Sign Reading Time Taken Comments Blood Pressure 126/68 04/18/2023 3:56 PM EST Pulse - - Temperature - - Respiratory Rate - - Oxygen Saturation - - Inhaled Oxygen Concentration - - Weight 92.6 kg (204 lb 3.2 oz) 04/18/2023 3:56 P M EST Height - - Body Mass Index 35.05 08/01/2022 2:47 PM EST documented in this [...] or making decisions? (5 years old or older No 08/15/2014 documented as of this encounter Progress Notes * Trisha Savage PA-C - 04/18/2023 4:05 PM EST Afia Saunders presents for visit at 16w4d. BP 126/68 | Wt 92.6 kg (204 lb 3.2 oz) | LMP 01/09/2023 (Approximate) | BMI 35.05 kg/m | BSA 2.05m Doing well. Denies vaginal bleeding, leaking of fluid, vaginal pressure, contractions, abdominal pain, or abnormal vaginal discharge. Denies headaches, blurry vision, or right upper quadrant pain. Patient states she does not yet feel movements she thinks - hard to tell. Patient reports that mood is stable. Patient reports doing well. Physical Exam General: alert and oriented, no acute distress Pulmonary: normal respiratory effort, no accessory muscle use. Abdomen: gravid, soft, non-tender heart rate: 140's bpm [place] Problems (from 02/07/23 to present) Problem Noted [...] not immune. Varicella immune. Declines genetic testing. Anatomy ultrasound at 20 weeks - ordered. Declines influenza vaccine and declines COVID-19 vaccine. History of section complicating 02/21/2023 by Trisha Savage PA-C No History of x 1. Desires repeat and tubal ligation. Plan: -Patient declines influenza vaccine. -Patient declines genetic testing. -Anatomy ultrasound ordered. -Patient reports that mood is stable on Zoloft. Patient reports doing well. Counseled patient to call triage/go to labor and delivery if she has any vaginal bleeding, leaking of fluid, vaginal pressure, four or more painful contractions in an hour, abdominal pain, decreased movements, headaches, blurry vision, or right upper quadrant pain. Patient verbalized understanding. RTO in 4 weeks for a return appointment or sooner if any concerns. Trisha Alanis PA-C documented in this encounter Nursing Notes * Delmy Acosta RN - 04/18/2023 3:57 PM EST Patient presents for return visit. Denies any concerns. documented in this encounter Plan of Treatment Upcoming Encounters Date Type Department Care Team (Late st Contact Info) Description 05/12/2023 9:15 AM EST Imaging Radiology, [address] [address] 05/16/2023 8:45 AM EST Office Visit Gynecology/Obstetics [address] [address] Trisha Savage PA-C [address] [place] [address] 06/08/2023 3:15 PM EST Office Visit Gynecology/Obstetics [address] [phone] Trisha Savage PA-C [address] [place] [address] 08/03/2023 9:00 AM EST Office Visit Family [address] [phone] Caroline Pittman PA-C [address] [place] [address] Scheduled Orders Name Type Priority Associated Diagnoses Orde r Schedule US PREG SINGLE/1ST GEST, 14 WEEKS OR LATER Medical Imaging Routine Encounter for supervision of other normal in second trimester Expected: 05/12/2023, Expires: 05/18/2024 Health Maintenance Due Date Last Done Comments [...] of other normal in second trimester- Primary History of section complicating Previous delivery, unspecified as to episode of care or not applicable Anxiety and depression Dysthymic disorder documented in this encounter Care Teams Administrative Aide Relationship Specialty Start Date End Date Genaro Long MD [address] [place] [address] PCP - General Family Medicine 08/15/14 documented as of this encounter"
--- OUTSIDE RECORDS SUMMARY | 2023-09-26 09:01 | External Medical Summary | Summary of Care ---
Author Name Unknown Organization [facility] Address [address] [place] [address] Phone [phone] Care Team Providers Care Lamination Operator Name Role Phone Genaro Long MD Primary Care Provider [phone] Reason for Visit * Reason Comments Return Visit Encounter Details Date Type Department Care Team ([facility] st Contact Info) Description 06/16/2023 3:15 PM EST Office Visit Gynecology/Obstetics [address] [phone] Rodriguez Palafox MD [address] [place] [address] History of section complicating *; Encounter for supervision of other normal in third trimester; Anxiety and depression Allergies Active Allergy Reactions Criticality Noted Date Comments Cephalosporins 01/24/2001 Food (See Comments) Hives 05/03/2010 documented as of this encounter (statuses as of 06/16/2023) Medications Medication Sig Dispensed Refills Start Date End Date Status Adult Gummy/DHA/FA 0.4-25 MG Oral Tablet Chewable Take by mouth. 0 Active Sertraline HCl 25 MG Oral Tablet (Zoloft)Indications:A nxiety and depression Take 1 Tablet by mouth daily. 90 Tablet 2 04/14/2023 Active documented as of this encounter (statuses as of 06/16/2023) Active Problems Problem Noted Date Diagnosed Date [...] as of this encounter (statuses as of 06/16/2023) Resolved Problems Problem Noted Date Diagnosed Date Resolved Date , normal first 01/12/2021 02/2 MICHELLE (generalized anxiety disorder) 08/06/2020 08/01/2022 Overview: Hydroxyzine Hcl prn ADVANCE DIRECTIVE INFORMATION 06/02/2005 07/09/2019 Overview: Not applicable (under age of 18) documented as of this encounter (statuses as of 06/16/2023) Immunizations Name Administration Dates Next Due HPV [...] money to get more. Never true 05/02/2023 Peak Depression Scale Answer Date Recorded Peak Depression Scale Total 6 02/21/2023 The thought [...] Sign Reading Time Taken Comments Blood Pressure 118/62 06/16/2023 3:10 PM EST Pulse - - Temperature - - Respiratory Rate - - Oxygen Saturation - - Inhaled Oxygen Concentration - - Weight 97.3 kg (214 lb 8 oz) 06/16/2023 3:10 PM EST Height - - Body Mass Index 36.82 08/01/2022 2:47 PM EST documented in this [...] as of this encounter Progress Notes * Rodriguez Palafox MD - 06/16/2023 3:13 PM EST 1) 25 wks 0 days RTOB Denied any other complaints today Denied any vag bleeding lof and admits to pos movement 2) Hx of c/s for repeat with tubal 3) Class 1 obese 4) Contraception tubal PP 5) 25 wks FH:27 FHR:145's Research Laboratory Specialist Documentation Patient offered information security specialist and declined. Labor and bleeding precautions given preeclampsia precautions given Call with any questions or concerns Return to clinic in 3 wks documented in this encounter Nursing Notes * Delmy Acosta RN - 06/16/2023 3:10 PM EST Patient presents for return visit. Denies any concerns. documented in this encounter Plan of Treatment Upcoming Encounters Date Type Department Care Team (Late st Contact Info) Description 07/03/2023 8:00 AM EST Laboratory Laboratory Patient Service [address] [phone] [place], [facility] [address] [place] [address] 07/05/2023 9:30 AM EST Office Visit Gynecology/Obstetics [address] [phone] Trisha Savage PA-C [address] [place] [address] 07/19/2023 9:30 AM EST Office Visit Gynecology/Obstetics [address] [phone] Trisha Savage PA-C [address] [place] [address] 08/03/2023 9:00 AM EST Office Visit [address] [phone] Caroline Pittman PA-C [address] [place] [address] Scheduled Orders Name Type Priority Associated Diagnoses Orde r Schedule CBC Lab Routine History of section complicating Encounter for supervision of other normal in third trimester Expected: 06/23/2023, Expires: 06/16/2024 TYPE AND SCREEN Lab Routine History of section complicating Encounter for supervision of other normal in third trimester Expected: 06/23/2023, Expires: 06/16/2024 50-G GESTATIONAL GLUCOSE, 1 HOUR Lab Routine History of section complicating Encounter for supervision of other normal in third trimester Expected: 06/23/2023, Expires: 06/16/2024 RPR Lab Routine History of section complicating Encounter for supervision of other normal in third trimester Expected: 06/16/2023, Expires: 06/16/2024 Health Maintenance Due Date Last Done Comments [...] or not applicable Encounter for supervision of other normal in third trimester Anxiety and depression Dysthymic disorder documented in this encounter Care Teams Lamination Operator Relationship Specialty Start Date End Date Genaro Long MD [address] [place] [address] PCP - General Family Medicine 08/15/14 documented as of this encounter
--- OUTSIDE RECORDS SUMMARY | 2023-09-26 09:01 | External Medical Summary ---
Author Name Unknown Address Unknown Organization K01:[facility] [place] [facility] - [address] [place] [address] Laboratory Report Ordering Provider Test Date Status TONY LEE 07/03/2023 09:05:49 Final Observation Date Value Abnormality Reference (Units ) Status ABO 07/03/2023 09:05:49 A Final RH 07/03/2023 09:05:49 Positive Final RED BLOOD CELL ANTIBODY SCREEN 07/03/2023 09:05:49 Negative Final SPECIMEN EXPIRATION DATE 07/03/2023 09:05:49 07/06/2023 23:59 Final Performing Location [facility] - [address] [place] [address]
--- OUTSIDE RECORDS SUMMARY | 2023-09-26 09:01 | External Medical Summary ---
Author Name Unknown Address Unknown Organization K01:[facility]ORY [facility] - [address] [place] [address] Laboratory Report Ordering Provider Test Date Status TONY LEE 07/03/2023 09:05:49 Final Observation Date Value Abnormality Reference (Units ) Status Glucose [Moles/volume] in Serum or Plasma --1 hour post 50 g glucose PO 07/03/2023 09:05:49 87 70-129 (mg/dL) Final Performing Location [facility]ORY [facility] - [address] [place] [address]
--- OUTSIDE RECORDS SUMMARY | 2023-09-26 09:01 | External Medical Summary ---
Author Name Unknown Address Unknown Organization K01[place] [place] [address] [facility] [address] Laboratory Report Ordering Provider Test Date Status TONY LEE 07/03/2023 09:05:49 Final Observation Date Value Abnormality Reference (Units ) Status Reagin Ab [Presence] in Serum by RPR 07/03/2023 09:05:49 Nonreactive Nonreactive Final Performing Location [facility] [place] [address] [facility] [address]
--- OUTSIDE RECORDS SUMMARY | 2023-09-26 09:01 | External Medical Summary | Summary of Care ---
Author Name Unknown Organization [facility] Address [address] [place] [address] Phone [phone] Care Team Providers Care Writer Producer Name Role Phone Genaro Long MD Primary Care Provider [phone] Reason for Visit * Reason Onset Date Comments Advice 07/04/2023 Encounter Details Date Type Department Care Team ([facility] st Contact Info) Description 07/04/2023 Telephone Gynecology/Obstetics [place] [address] [place] [address] Rodriguez Palafox MD [address] [place] [address] Advice Allergies Active Allergy Reactions [...] 07/04/2023) Immunizations Name Administration Dates Next Due DTaP Dipth/Tet/Acell Pertussis (Infanrix), Peds 2004,06/15/2001,07/07/2000,03/10,01/12/2000 HIB PRP-T, 4 dose (ActHib) 03/09/2001,,03/10/2000,01/11 HPV Vaccine, 9-Valent 07/14/2017,03/10/2017,12/11 Hepatitis B, 0-19 yrs 10/13/2000,03/10/2000,07/1999 IPV - Polio Virus Vaccine (Inact) 2004,06/15/2001,03/10/2000,01/11 [...] money to buy more. Never true 05/02/20 Within the past 12 months, t he food you bought just didn't last and you didn't have money to get more. Never true 05/02/2023 [place] Depression Scale Answer Date Recorded [place] Depression Scale Total 6 02/21/2023 The thought [...] encounter Miscellaneous Notes * Telephone Encounter - Mary Melgar CCMA - 07/04/2023 9:40 AM EST Contacted pt and made aware * Telephone Encounter - Rodriguez Palafox MD - 07/04/2023 9:19 AM EST Please advise at risk for anemia in this recommend po iron daily medication sent to pharmacy. Advise call with concerns or questions documented in this encounter Plan of Treatment Upcoming Encounters Date Type Department Care Team ([facility] Contact Info) Description 07/05/2023 9:30 AM EST Office Visit Gynecology/Obstetics [address] [phone] Trisha Savage PA-C [address] [place] [address] 07/19/2023 9:30 AM EST Office Visit Gynecology/Obstetics [address] [phone] Trisha Savage PA-C [address] [place] [address] 08/03/2023 9:00 AM EST Office Visit Family Practice [address] [phone] Caroline Pittman PA-C [address] [place] [address] Health Maintenance Due Date Last Done Comments [...] filedocumented as of this encounter Care Teams Writer Producer Relationship Specialty Start Date End Date Genaro Long MD [address] [place] [phone] PCP - General Family Medicine 08/15/14 documented as of this encounter
--- OUTSIDE RECORDS SUMMARY | 2023-09-26 09:01 | External Medical Summary | Summary of Care ---
Author Name Unknown Organization [facility] Address [address] [place] [address] Phone [phone] Care Team Providers Care Transplant Coordinator Name Role Phone Genaro Long MD Primary Care Provider Reason for Visit * Reason Onset Date Comments Medication Refill 04/13/2023 Encounter Details Date Type Department Care Team (Late st Contact Info) Description 04/13/2023 Refill Gynecology/Obstetics [place] [address] [place] [address] Trisha Savage PA-C [address] [place] [address] Anxiety and depression Allergies Active Allergy Reactions Criticality Noted Date Comments Cephalosporins 01/24/2001 Food (See Comments) Hives 05/03/2010 documented as of this encounter (statuses as of 04/14/2023) Medications Medication Sig Dispensed Refills Start Date End Date Status Adult Gummy/DHA/FA 0.4-25 MG Oral Tablet Chewable Take by mouth. 0 Active Sertraline HCl 25 MG Oral Tablet (Zoloft)Indicatio ns:Anxiety and depression Take 1 Tablet by mouth daily. 90 Tablet 2 04/14/2023 Active Sertraline HCl 25 MG Oral Tablet (Zoloft)Indicatio ns:Anxiety and depression Take 1 Tablet by mouth daily. 30 Tablet 7 03/21/2023 04/13/2023 Discontinued( Refill) documented as of this encounter (statuses as of 04/14/2023) Active Problems Problem Noted Date Diagnosed Date [...] Declines genetic testing. Anatomy ultrasound at 20 weeks. Declines influenza vaccine and declines COVID-19 [...] as of this encounter (statuses as of 04/14/2023) Resolved Problems Problem Noted Date Diagnosed Date Resolved Date , normal first 01/12/202107/14 MICHELLE (generalized anxiety disorder) 08/06/2020 08/01/2022 Overview: Hydroxyzine Hcl prn ADVANCE DIRECTIVE INFORMATION 06/02/2005 07/09/2019 Overview: Not applicable (under age of 18) documented as of this encounter (statuses as of 04/14/2023) Immunizations Name Administration Dates Next Due HPV [...] money to get more. Never true 08/01/2022 [place] Depression Scale Answer Date Recorded [place] Depression Scale Total 6 02/21/2023 The thought [...] encounter Miscellaneous Notes * Telephone Encounter - Jesus Palafox MD - 04/14/2023 9:07 AM EDTSigned Prescriptions: Disp Refills Sertraline HCl 25 MG Oral Tablet (Zoloft) 90 Tab*2 Sig: Take 1 Tablet by mouth daily. Authorizing Provider: JESUS PALAFOX * Telephone Encounter - Zully Doty LPN - 04/13/2023 3:37 PM EDT Pharmacy requesting 90 day supply. Pending Prescriptions: Disp Refills Sertraline HCl 25 MG Oral Tablet (Zoloft) 90 Tab*2 Sig: Take 1 Tablet by mouth daily. Last Visit: 03/21/2023 (in office), Visit date not found (telemedicine) Next Visit: 04/18/2023 Last date the medication was ordered: 03/21/2023 Patient Active Problem List Diagnosis Code Postural orthostatic tachycardia syndrome G90.A Rubella non-immune status, antepartum O09.899, Z28.39 Carrier of group B Streptococcus Z22.330 History of section complicating O34.219 Supervision of normal Z34.90 Anxiety and depression F41.9, F32.A Labs: Lab Results Component Value Date/Time CREATININE - [facility] 0.8 06/10/2021 10:01 AM CREATININE - [facility] 0.9 10/29/2018 03:22 PM Lab Results Component Value Date/Time POTASSIUM - [facility] 4.4 06/10/2021 10:01 AM POTASSIUM - [facility] 4.2 10/29/2018 03:22 PM Lab Results Component Value Date/Time TSH - [facility] 0.81 02/21/2023 02:26 PM TSH - [facility] 1.35 07/25/2017 08:14 AM No results found for: "LDL" Lab Results Component Value Date/Time ALT - [facility] 16 06/10/2021 10:01 AM ALT - [facility] 15 10/29/2018 03:22 PM Hemoglobin AIC Results: No results found for: "HEMOGLOBIN A1C" documented in this encounter Plan of Treatment Upcoming Encounters Date Type Department Care Team (Late st Contact Info) Description 04/18/2023 4:00 PM EST Office Visit Gynecology/Obstetics [place] [address] [place] [address] Trisha Savage PA-C [address] [place] [address] [place] [address] 05/16/2023 8:45 AM EST Office Visit Gynecology/Obstetics [place] [address] [place] [phone] Trisha Savage PA-C [address] [place], [place] [address] [address] 06/13/2023 8:45 AM EST Office Visit Gynecology/Obstetics [place] [address] [place] [phone] Trisha Savage, HUSSEIN [address] [place] [phone] 08/03/2023 9:00 AM EST Office Visit [facility] [address] [place] [phone] Caroline Pittman PA-C [address] [place] [address] Health Maintenance Due Date Last Done Comments [...] as of this encounter Visit Diagnoses Diagnosis Anxiety and depression Dysthymic disorder documented in this encounter Care Teams Transplant Coordinator Relationship Specialty Start Date End Date Genaro Long MD [address] [place] [phone] PCP - General Family Medicine 08/15/14 documented as of this encounter
--- OUTSIDE RECORDS SUMMARY | 2023-09-26 09:01 | External Medical Summary | Summary of Care ---
Author Name Unknown Organization [facility] Address [address] [place] [address] Phone [phone] Care Team Providers Care Car Builder Name Role Phone Genaro Long MD Primary Care Provider [phone] Reason for Visit * Reason Comments Outpatient Testing Encounter Details Date Type Department Care Team ([facility] st Contact Info) Description 07/03/2023 8:00 AM [facility] Laboratory Laboratory Patient Service [address] [phone] [address] History of section complicating ; Encounter for supervision of other normal in third trimester Allergies Active Allergy Reactions Criticality Noted Date Comments Cephalosporins 01/24/2001 Food (See Comments) Hives 05/03/2010 documented as of this encounter (statuses as of 07/03/2023) Medications Medication Sig Dispensed Refills Start Date End Date Status Adult Gummy/DHA/FA 0.4-25 MG Oral Tablet Chewable Take by mouth. 0 Active Sertraline HCl 25 MG Oral Tablet (Zoloft)Indications:A nxiety and depression Take 1 Tablet by mouth daily. 90 Tablet 2 04/14/2023 Active documented as of this encounter (statuses as of 07/03/2023) Active Problems Problem Noted Date Diagnosed Date [...] as of this encounter (statuses as of 07/03/2023) Resolved Problems Problem Noted Date Diagnosed Date Resolved Date , normal first 01/12/202107/14 MICHELLE (generalized anxiety disorder) 08/06/2020 08/01/2022 Overview: Hydroxyzine Hcl prn ADVANCE DIRECTIVE INFORMATION 06/02/2005 07/09/2019 Overview: Not applicable (under age of 18) documented as of this encounter (statuses as of 07/03/2023) Immunizations Name Administration Dates Next Due HPV [...] money to get more. Never true 05/02/2023 [place] Depression Scale Answer Date Recorded [place] Depression Scale Total 6 02/21/2023 The thought [...] Upcoming Encounters Date Type Department Care Team ([facility] Contact Info) Description 07/05/2023 9:30 AM EST Office Visit Gynecology/Obstetics [place] [address] [facility] [place] [phone] Trisha Savage PA-C [address] [place], [place] [address] [place] [address] 07/19/2023 9:30 AM EST Office Visit [facility] [place] [facility] [phone] Trisha Savage PA-C [address] [place], [place] [address] [phone] 08/03/2023 9:00 AM EST Office Visit Family [facility] [place] [address] [facility] [place] [phone] Caroline Pittman PA-C [address] [place], [place] [address] [place] [phone] Pending Results Name Type Priority Associated Diagnoses Date /Time CBC Lab Routine History of section complicating Encounter for supervision of other normal in third trimester 07/03/2023 9:05 AM EST TYPE AND SCREEN Lab Routine History of section complicating Encounter for supervision of other normal in third trimester 07/03/2023 9:05 AM EST 50-G GESTATIONAL GLUCOSE, 1 HOUR Lab Routine History of section complicating Encounter for supervision of other normal in third trimester 07/03/2023 9:05 AM EST RPR Lab Routine History of section complicating Encounter for supervision of other normal in third trimester 07/03/2023 9:05 AM EST Health Maintenance Due Date Last Done [...] Visit Diagnoses Diagnosis History of section complicating Previous delivery, unspecified as to episode of care or not applicable Encounter for supervision of other normal in third trimester documented in this encounter Care Teams Car Builder Relationship Specialty Start Date End Date Genaro Long MD [address] [place] [phone] PCP - General Family Medicine 08/15/14 documented as of this encounter
--- OUTSIDE RECORDS SUMMARY | 2023-09-26 09:01 | External Medical Summary | Summary of Care ---
Author Name Unknown Organization [facility] Address [address] [place] [address] Phone [phone] Care Team Providers Care Dental Coordinator Name Role Phone Genaro Long MD Primary Care Provider [phone] Reason for Visit * Reason Comments Return Visit Encounter Details Date Type Department Care Team ([facility] st Contact Info) Description 05/16/2023 8:45 AM EST Office Visit Gynecology/Obstetics [place] [address] [place] [address] Trisha Savage PA-C [address] [place] [address] Encounter for supervision of other normal in second trimester*; Anxiety and depression; History of section complicating Allergies Active Allergy Reactions Criticality Noted Date Comments Cephalosporins 01/24/2001 Food (See Comments) Hives 05/03/2010 documented as of this encounter (statuses as of 05/16/2023) Medications Medication Sig Dispensed Refills Start Date End Date Status Adult Gummy/DHA/FA 0.4-25 MG Oral Tablet Chewable Take by mouth. 0 Active Sertraline HCl 25 MG Oral Tablet (Zoloft)Indications:A nxiety and depression Take 1 Tablet by mouth daily. 90 Tablet 2 04/14/2023 Active documented as of this encounter (statuses as of 05/16/2023) Active Problems Problem Noted Date Diagnosed Date [...] as of this encounter (statuses as of 05/16/2023) Resolved Problems Problem Noted Date Diagnosed Date Resolved Date , normal first 01/12/2021 02/2 MICHELLE (generalized anxiety disorder) 08/06/2020 08/01/2022 Overview: Hydroxyzine Hcl prn ADVANCE DIRECTIVE INFORMATION 06/02/2005 07/09/2019 Overview: Not applicable (under age of 18) documented as of this encounter (statuses as of 05/16/2023) Immunizations Name Administration Dates Next Due HPV [...] money to get more. Never true 05/02/2023 [place] Depression Scale Answer Date Recorded [place] Depression Scale Total 6 02/21/2023 The thought [...] Sign Reading Time Taken Comments Blood Pressure 110/68 05/16/2023 8:42 AM EST Pulse - - Temperature - - Respiratory Rate - - Oxygen Saturation - - Inhaled Oxygen Concentration - - Weight 92.7 kg (204 lb 6.4 oz) 05/16/2023 8:42 A M EST Height - - Body Mass Index 35.09 08/01/2022 2:47 PM EST documented in this [...] Progress Notes * Trisha Savage PA-C - 05/16/2023 8:43 AM EST Afia Saunders presents for visit at 20w4d. BP 110/68 | Wt 92.7 kg (204 lb 6.4 oz) | LMP 01/09/2023 (Approximate) | BMI 35.09 kg/m | BSA 2.05m Doing well. Denies [...] gravid, soft, non-tender heart rate: 140's bpm [place] Problems (from 02/07/23 to present) Problem Noted [...] tubal ligation. Plan: -Patient declines influenza vaccine. -s/p anatomy ultrasound. -Anterior placenta. Answered patient's questions about placenta. -Patient reports that mood is stable. -Patient desires [facility] delivery. Advised transferring care to [facility] at 36 weeks. Patient agrees. Counseled patient to call triage/go to labor and delivery if she has any vaginal bleeding, leaking of fluid, vaginal pressure, four or more painful contractions in an hour, abdominal pain, decreased movements, headaches, blurry vision, or right upper quadrant pain. Patient verbalized understanding. RTO in 4 weeks for a return appointment or sooner if any concerns. Trisha Dukes-HUSSEIN Harmon documented in this encounter Nursing Notes * Mary Melgar CCMA - 05/16/2023 8:41 AM EST Pt here for gita visit- would like to discuss placenta placement documented in this encounter Plan of Treatment Upcoming Encounters Date Type Department Care Team (Late st Contact Info) Description 06/08/2023 3:15 PM EST Office Visit Gynecology/Obstetics [address] [place] [phone] Trisha Savage PA-C [address] [place] [address] 07/05/2023 9:30 AM EST Office Visit Gynecology/Obstetics [address] [phone] Trisha Savage PA-C [address] [place] [address] 08/03/2023 9:00 AM EST Office Visit Family [address] [phone] Caroline Pittman PA-C [address] [place] [address] Health Maintenance Due Date Last Done Comments [...] to episode of care or not applicable documented in this encounter Care Teams Dental Coordinator Relationship Specialty Start Date End Date Genaro Long MD [address] [place] [phone] PCP - General Family Medicine 08/15/14 documented as of this encounter"
[2023-09-26] MEDS ORDERED: DIPHTHER/TETAN/PERTUS Vaccine (Tdap, Adol/Adult) 0.5mL IM ONE (09:36)
[2023-09-26] MEDS ORDERED: HYDROCORTISONE ACETATE 25 MG SUPP PR PRN (09:36)
[2023-09-26] MEDS ORDERED: MAGNESIUM HYDROXIDE SUSP 30 ML UDC PO PRN (09:36)
[2023-09-26] MEDS ORDERED: BENZOCAINE 20% SPRY 85 APPLN/85 GM CAN EXT PRN (09:36)
[2023-09-26] MEDS ORDERED: SENNA 8.6 MG TAB PO PRN (09:36)
--- NOTE | 2023-09-26 09:36 | Operative Report ---
Post Operative Report Pre & Post Diagnosis Operation Date: 09/26/23 07:30 Pre-Op Diagnosis: PREVIOUS SECTION; STERILIZATION Post-Op Diagnosis: PREVIOUS SECTION; STERILIZATION I identified the patient and participated in the time-out.: Yes Procedure Operation Date: 09/26/23 07:30 Actual Procedures p Repeat Section, delivery of live male child at 0830 - Marko Watts MD s Bilateral Tubal ligation - Marko Watts MD Surgeon Marko Watts MD Machine Setter Dr Paul Estimated Blood Loss 260 Findings Consistent with Post-Op Diagnosis Live male in cephalic presentation nuchal cord x 2 easily reduced. Amniotic fluid is clear. No significant adhesions from prior surgery. Fluids IVF; 2600ml Urine; 150 EBL ;260ml Specimens placenta, cord blood Drains none Anesthesia Type Spinal Complications None Indications repeat c/sec and sterilization Description of Procedure Patient brought to the operating room Prepped and draped in normal sterile fashion in dorsal supine position with a leftward tilt. Time out is performed. Patient is identified by name and date of . Allergy and antibiotics and reviewed and confirmed. Skin check is performed to see if anesthesia is adequate A Pfannenstiel incision is made and carried out to the fascia with a scalpel. Fascia is incised in the midline extended laterally on both sides with Armstrong scissors. Shae's were used to grab the superior part of the fascial incision and the rectus abdominis muscle dissected with Armstrong scissors.. Same procedure was performed on the lower section of the fascia. The rectus muscle is then in the midline and the peritoneum identified, tented up and entered sharply with the Metzenbaum scissors. The peritoneal incision was then extended superiorly and inferiorly with good visualization of the bladder. An Douglas retractor was then inserted to provide better visualization and retraction. Vesicouterine peritoneum was identified, grasped with pickups and entered sharply with Metzenbaum scissors. The incision was then extended laterally and the bladder flap created with Metzenbaum scissors. The lower uterine segment incision was performed in a transverse fashion with a scalpel. Uterine incision was then extended laterally with the bandage scissors. Amniotomy is performed. Amniotic fluid is clearThe infant's head was delivered atraumatically. There is 2 nuchal cords which is easily reduced Nose and mouth suctioned with the bulb suction. Delayed cord clamping performed and cord is then clamped and cut and infant is handed over to the waiting pediatric team. Cord blood and gases obtained The placenta is then removed manually the uterus is exteriorized and cleared of all clots and debris. Uterine incision it repaired with 0-Vicryl in a locking fashion. A second layer of 0-Vicryl is used to obtain excellent hemostasis. Uterus is placed back into the abdominal cavity. TUBAL LIGATION; Attention is paid to the tubal ligation part of the procedure. The left and right fallopian tube identified and followed from the fimbriated ends to the cornual regions. This is confirmed by both surgeon and learning support assistant. Both ovaries were examined and found was found to be grossly normal looking. A hand-held LigaSure device was used to transect the both fallopian tubes staying close to the fallopian tube in order to preserve the vascular integrity of the ovary. Fallopian tubes were sent to pathology. There was good hemostasis. The bladder flap was repaired in a running fashion with plain suture. Copious amount of irrigation was used to irrigate the abdomen. Gutters were cleared of all clots and debris . Hemostasis was obtained. The Douglas retractor is removed as well as sponges or instruments in the abdomen. The peritoneum was identified and closed in a running fashion using plain suture. The rectus abdominis muscle was examined to ensure there no bleeding. The rectus abdominis muscle was approximated loosely using plain suture in a [id number] manner. Once again hemostasis is confirmed. The fascia was grasped with liliana's and closed in a running fashion. Both fascial layers are closed together using 0-Vicryl suture. Subcutaneous space is irrigated and hemostasis was confirmed. Subcutaneous space is approximated with plain suture. Skin is closed with michelle. The patient tolerated procedure well sponge just labs needle counts were correct x2 patient is sent to recovery in stable condition Machine Setter was necessary for retraction and manipulation of instruments in order to provide for a safe operationI attest to the content of the Intraoperative Record and any orders documented therein. Any exceptions are noted below.
[2023-09-26] MEDS ORDERED: LACTATED RINGER'S 1,000 ML IV SCH (09:45)
[2023-09-26] MEDS: OXYTOCIN 20 UNITS/LR 1,002 ML IV SCH (09:56)
[2023-09-26] MEDS: OXYTOCIN 30 UNITS/LR 1,003 ML IV SCH (10:07)
--- NOTE | 2023-09-26 11:44 | Anesthesiology Progress Note ---
Date of Service September 26, 2023 Anesthesia Post Procedure Vital Signs Vital Signs: Temp Pulse Resp BP Pulse Ox 09/26/23 11:21 100 09/26/23 11:21 97 H 09/26/23 11:21 89 137/70 09/26/23 11:20 97 H 18 137/70 100 09/26/23 11:16 80 98 09/26/23 11:11 86 133/69 99 09/26/23 11:06 98 H 99 09/26/23 11:01 69 135/69 98 09/26/23 10:56 75 98 09/26/23 10:51 79 136/67 98 09/26/23 10:46 79 98 09/26/23 10:44 85 139/67 09/26/23 10:41 99 09/26/23 10:41 84 09/26/23 10:41 81 156/72 H 09/26/23 10:36 86 99 09/26/23 10:31 93 H 152/80 H 100 09/26/23 10:26 93 H 99 09/26/23 10:21 94 H 145/71 H 100 09/26/23 10:16 98 H 100 09/26/23 10:11 100 09/26/23 10:11 81 09/26/23 10:11 87 146/68 H 09/26/23 10:10 85 18 100 09/26/23 10:06 85 100 09/26/23 10:01 94 H 147/76 H 99 09/26/23 10:00 94 H 20 147/76 H 99 09/26/23 09:56 87 100 09/26/23 09:51 91 H 154/86 H 100 09/26/23 09:50 94 H 18 100 09/26/23 09:46 94 H 100 09/26/23 09:41 100 09/26/23 09:41 96 H 09/26/23 09:41 100 H 154/93 H 09/26/23 09:40 100 H 20 154/93 H 09/26/23 09:36 93 H 100 09/26/23 09:31 103 H 147/88 H 100 09/26/23 09:30 93 H 20 100 09/26/23 09:26 90 100 09/26/23 09:21 36.4 C L 09/26/23 09:21 93 H 137/76 100 09/26/23 09:20 103 H 20 100 09/26/23 06:59 79 134/82 09/26/23 06:58 20 09/26/23 06:58 36.9 C 20 09/26/23 05:41 36.6 C 09/26/23 05:35 86 135/74 Pain Intensity Bilateral Abdomen: Pain Intensity: 2 Transfer of Care Handoff Completed per policy Notes Mental Status: alert / awake / arousable Patient Amnestic to Procedure: Yes Nausea / Vomiting: adequately controlled Pain: adequately controlled Airway Patency, RR, SpO2: stable & adequate BP & HR: stable & adequate Hydration State: stable & adequate Neuraxial Anesthesia: was administered and sensory block is resolving Anesthetic Complications: no major complications apparent
[2023-09-26] MEDS: SIMETHICONE 80 MG CHEW PO SCH (14:33)
[2023-09-26] MEDS: KETOROLAC 30 MG/ML VIAL IV PRN (17:52)
[2023-09-26] MEDS: DOCUSATE SODIUM 100 MG CAP PO SCH (19:55)
[2023-09-27] MEDS ORDERED: diphenhydrAMINE Capsule 25 MG CAP PO PRN (02:21)
[2023-09-27] MEDS ORDERED: ONDANSETRON INJ 2 MG/ML 2 ML VIAL IV PRN (02:21)
[2023-09-27] MEDS ORDERED: ZOLPIDEM TARTRATE 5 MG TAB PO PRN (02:21)
[2023-09-27] MEDS ORDERED: PROMETHAZINE HCL 25 MG in SODIUM CHLORIDE 0.9% 50 ML IV PRN (02:21)
[2023-09-27] MEDS ORDERED: diphenhydrAMINE 50 MG/ML VIAL IV PRN (02:21)
[2023-09-27] MEDS: IBUPROFEN 600 MG TAB PO PRN (06:31)
[2023-09-27 07:35] LABS: Basophils # (auto) 0.02 K/uL (0.00-0.20); Basophils % (auto) 0.3 %; Eosinophils # (auto) 0.07 K/uL (0.00-0.50); Eosinophils % (auto) 0.9 %; Hematocrit (blood only) 37.4 % (37.0-47.0); Immature Granulocytes # (auto) 0.02 K/uL (0.01-0.20); Immature Granulocytes % (auto) 0.3 %; Lymphocytes # (auto) 0.57 K/uL (1.20-3.40); Lymphocytes % (auto) 7.4 %; Mean Corpuscular Hemoglobin 25.2 pg (25.0-34.0); Mean Corpuscular Hgb Conc 32.1 g/dL (32.0-36.0); Mean Corpuscular Volume 78.6 fL (80.0-100.0); Mean Platelet Volume 13.7 fL (9.4-12.4); Monocytes # (auto) 0.51 K/uL (0.11-0.59); Monocytes % (auto) 6.6 %; Neutrophils # (auto) 6.52 K/uL (1.40-6.50); Neutrophils % (auto) 84.5 %; Platelet Count 206 K/uL (130-400); RDW Standard Deviation 45.4 fL (36.4-46.3); Red Blood Count 4.76 M/uL (4.20-5.40); White Blood Count 7.71 K/ul (4.8-10.8)
[2023-09-27] MEDS: PRENATAL VITAMIN 1 TAB PO SCH (08:49)
[2023-09-27] MEDS: oxyCODONE/ACETAMINOPHEN 5mg/325mg TAB PO PRN (08:49)
[2023-09-27] MEDS: FERROUS SULFATE 325 MG TAB PO SCH (08:49)
[2023-09-27] MEDS: SERTRALINE HCL 50 MG TABLET PO SCH (08:50)
--- NOTE | 2023-09-27 10:17 | Obstetrical Progress Note ---
Date of Service September 27, 2023 Subjective Ambulation: ambulating normally Voiding: no voiding problems Passing Gas:: No Diet Tolerance:: regular diet Feeding Type:: bottle feeding Current Pain Level(1-10): 0 doing well Physical Exam Constitutional WD/WN, vitals as above Gastrointestinal (Abdomen) Inspection/Auscultation: abdomen normal to inspection and + abdominal surgical incision soft and non-tender Musculoskeletal Extremities: extremities normal to inspection Skin no rashes, warm and dry Neurologic patellar DTR's 2+ bilat, sensation intact Psychiatric A+Ox3, euthymic affect Results & Data Vital Signs (Past 12 Hours) Vital Signs Temp Pulse Resp BP Pulse Ox O2 Del Method 09/27/23 07:30 36.8 C 95 H 18 129/79 96 Room Air 09/27/23 03:06 14 98 09/27/23 03:06 36.8 C 88 14 120/79 98 Room Air 09/27/23 00:38 14 96 09/26/23 23:00 16 97 Laboratory Results Laboratory Results - last 72 hr 09/26/23 09/27/23 05:44 06:33 WBC 5.81 7.71 RBC 4.81 4.76 Hgb 12.1 12.0 Hct 38.0 37.4 MCV 79.0 L 78.6 L MCH 25.2 25.2 MCHC 31.8 L 32.1 RDW Std Deviation 45.1 45.4 RDW Coeff of Marielena 15.9 H 16.0 H Plt Count 199 206 MPV 13.4 H 13.7 H Immature Gran % (Auto) 0.3 Neut % (Auto) 84.5 Lymph % (Auto) 7.4 [place] % (Auto) 6.6 Eos % (Auto) 0.9 Baso % (Auto) 0.3 Neut # (Auto) 6.52 H Lymph # (Auto) 0.57 L [place] # (Auto) 0.51 Eos # (Auto) 0.07 Baso # (Auto) 0.02 Immature Gran # (Auto) 0.02 Blood Type A Positive Antibody Screen NEGATIVE Crossmatch See Detail
[2023-09-27] MEDS: bisacodyL 5 MG TABEC PO SCH (20:48)
[2023-09-28 06:30] LABS: Hematocrit (blood only) 34.1 % (37.0-47.0)
[2023-09-28] MEDS ORDERED: bisacodyL 10 MG SUPP PR PRN (09:36)
--- NOTE | 2023-09-28 09:39 | Obstetrical Progress Note ---
Date of Service September 28, 2023 Assessment & Plan Admission and Anticipated Discharge Date Admission Date: September 26, 2023 Subjective Patient is seen and examined. She feels well, no complaints. Pain is under control with oral meds. Ambulating without dizziness Voiding without difficulty Tolerating regular diet with out N&V Flatus + BM + Bleeding is minimal No fever/ chills/ CP/ SOB/ N&V/ Leg pain Bottle feeding without problems Vital Signs Temp Pulse Resp BP BP Pulse Ox O2 Del Method 09/28/23 07:32 36.6 C 77 16 128/79 99 Room Air 09/28/23 05:00 36.8 C 67 16 119/74 98 Room Air Lab Results 09/26/23 09/27/23 09/28/23 Range/Units 05:44 06:33 06:02 WBC 5.81 7.71 (4.8-10.8) K/ul RBC 4.81 4.76 (4.20-5.40) M/uL Hgb 12.1 12.0 11.0 L (12.0-16.0) g/dl Hct 38.0 37.4 34.1 L (37.0-47.0) % MCV 79.0 L 78.6 L (80.0-100.0) fL MCH 25.2 25.2 (25.0-34.0) pg MCHC 31.8 L 32.1 (32.0-36.0) g/dL RDW Std Deviation 45.1 45.4 (36.4-46.3) fL RDW Coeff of Marielena 15.9 H 16.0 H (11.5-14.5) % Plt Count 199 206 (130-400) K/uL MPV 13.4 H 13.7 H (9.4-12.4) fL Immature Gran % (Auto) 0.3 % Neut % (Auto) 84.5 % Lymph % (Auto) 7.4 % [place] % (Auto) 6.6 % Eos % (Auto) 0.9 % Baso % (Auto) 0.3 % Neut # (Auto) 6.52 H (1.40-6.50) K/uL Lymph # (Auto) 0.57 L (1.20-3.40) K/uL [place] # (Auto) 0.51 (0.11-0.59) K/uL Eos # (Auto) 0.07 (0.00-0.50) K/uL Baso # (Auto) 0.02 (0.00-0.20) K/uL Immature Gran # (Auto) 0.02 (0.01-0.20) K/uL Blood Type A Positive Antibody Screen NEGATIVE Crossmatch See Detail PE: General: Alert, orientedx3, NAD CVS: S1S2 RRR Lungs; CTAB Abd: soft, NT, ND, BS+, fundus firm, below Umbilicus Incision/ Dressing: Clean, dry, intact Perineum intact, Lochia rubra minimal Ext; NT, no edema AP: 22 yo s/p C Section, pod# 2 VSS Afebrile doing well Continue routine postop care Encourage ambulation, PO intake All questions were answered Desires D/C home , f/u in office Results & Data Vital Signs (Past 12 Hours) Vital Signs Temp Pulse Resp BP BP Pulse Ox O2 Del Method 09/28/23 07:32 36.6 C 77 16 128/79 99 Room Air 09/28/23 05:00 36.8 C 67 16 119/74 98 Room Air
== END 2023-09-28 11:35 | disposition home health service (06) | DRG 785 ==
LOC: 4S1 05:29 → EDSTATUS 07:30 → 4E2 11:39
PROC: M.PPTLD (2023-09-26 07:30)
DX: Z3A.39 39 weeks gestation of pregnancy; Z30.2 Encounter for sterilization; Z37.0 Single live birth; O69.81X0 Labor and delivery complicated by cord around neck, without compression, not applicable or unspecified; O34.211 Maternal care for low transverse scar from previous cesarean delivery